=== PATIENT | male | born 1940 | race Caucasian/White ===

== ENCOUNTER 2017-07-23 10:24 | Emergency (ER) | payer MEDICARE ==
[2017-07-23 11:13] VITALS: BP 148/86
--- NOTE | 2017-07-23 11:40 | UC ---
Throat Pain/Nasal Jerod HPI - HPI Summary HPI Summary: 76 year old with sore throat. Complaints of left sided throat lump noticed 6 months ago. PCP sent him for ultrasound, which came back normal. Describes it as 'mild sore throat' and 'restrictive' feeling. Starting to lose voice. Not gaining weight like he used to. Complaints of general malaise feeling. PCP appt next week, labs drawn this past week. ENT appt next week. History of bladder cancer at age 56. Came in today as he is not improved. HAS HAD GERD and saw Dr Hill 2 days ago and started GERD med yesterday. No choking on food, no early satiety, no dysphagia. Has had GERD / reflux with pizza and when lying down at night. ENT next thursday [ End ] - History of Current Complaint Chief Complaint: UCGeneralIllness Stated Complaint: SORE THROAT Time Seen by Provider: 07/23/17 11:30 Hx Obtained From: Patient Onset/Duration: Gradual Onset Pain Intensity: 2 - Allergies/Home Medications Allergies/Adverse Reactions: Allergies Allergy/AdvReac Type Severity Reaction Status Date / Time Iodinated Contrast- Oral and Allergy Hives Verified 06/08/17 11:15 IV Dye iodine Allergy Hives Verified 06/08/17 11:15 Home Medications: Home Medications Gabapentin CAP(*) [Neurontin 300 CAP(*)] 300 mg PO BID 07/23/17 [History Confirmed 07/23/17] Meloxicam [Mobic] 15 mg PO DAILY 07/23/17 [History Confirmed 07/23/17] [place]-3 Fatty Acids/Fish Oil [Fish Oil 1,000 mg Capsule] 1 each PO DAILY [History Confirmed 07/23/17] Valsartan TAB* [Diovan TAB*] 320 mg PO DAILY 07/23/17 [History Confirmed ] PMH/Surg Hx/FS Hx/Imm Hx Previously Healthy: Yes Cardiovascular History: Hypertension GI/ History: Gastroesophageal Reflux - Surgical History Surgical History: Yes Surgery Procedure, Year, and Place: APPY,LAPCHOLE, BLADDER CA WITH TUMOR REMOVAL ,RT ANKLE ORIF, CARPAL TUNNEL BILATERAL WRISTS, CATARACT REPAIR BILATERALLY - Social History Occupation: Retired Alcohol Use: Daily Alcohol Amount: 1 shot every night Substance Use Type: None Smoking Status (MU): Former Smoker Type: Cigarettes Length of Time of Smoking/Using Tobacco: QUIT AT 35 Household Exposure Type: Cigarettes Review of Systems Constitutional: Fatigue ENT: Sore Throat Gastrointestinal: Other - gerd Is Patient Immunocompromised?: No All Other Systems Reviewed And Are Negative: Yes Physical Exam Triage Information Reviewed: Yes Appearance: Well-Appearing, No Pain Distress, Well-Nourished Vital Signs: Initial Vital Signs Temp 99.1 F 07/23/17 11:02 Pulse 70 07/23/17 11:02 Resp 14 07/23/17 11:02 BP 148/86 07/23/17 11:02 Pulse Ox 98 07/23/17 11:02 Vital Signs Reviewed: Yes Eye Exam: Normal ENT Exam: Normal ENT: Positive: Normal ENT inspection Dental Exam: Normal Neck exam: Normal Neck: Positive: 1 Respiratory Exam: Normal Cardiovascular Exam: Normal Abdominal Exam: Normal Musculoskeletal Exam: Normal Neurological Exam: Normal Psychological Exam: Normal Skin Exam: Normal Throat Pain/Nasal Course/Dx - Course Course Of Treatment: possible GERD causing his voice changes -- seen by GI 2 days ago started meds 1 day ago. Cont meds. keep f/u with ENT. RTO if needed. no acute concerns and he is worried as Sx not going away and with history of bladder cancer he is worried about cancer but no red flags at this time and cont current treatment. - Differential Dx/Diagnosis Differential Diagnosis/HQI/PQRI: Laryngitis, Peritonsillar Abscess, Pharyngitis , Tonsillitis, URI Provider Diagnoses: GERD. laryngitis Discharge - Sign-Out/Discharge Documenting (check all that apply): Discharge/Admit/Transfer - Discharge Plan Condition: Good Disposition: HOME Patient Education Materials: Gastroesophageal Reflux Disease (ED) Referrals: Gregg Keyes DO [Primary Care Provider] - 4 Days (IF NEEDED) Additional Instructions: PLEASE KEEP YOUR ENT APPT NEXT WEEK FOR FURTHER EVALUATION - Billing Disposition and Condition Condition: GOOD Disposition: Home
== END 2017-07-23 12:03 | disposition home or self-care (01) ==
LOC: UCCORT 10:24
DX: K21.9 Gastro-esophageal reflux disease without esophagitis (principal); J04.0 Acute laryngitis; Z85.51 Personal history of malignant neoplasm of bladder; Z88.8 Allergy status to other drugs, medicaments and biological substances; Z91.041 Radiographic dye allergy status; Z87.891 Personal history of nicotine dependence
CPT/HCPCS: 99212; G0463

== ENCOUNTER 2018-11-26 07:23 | Inpatient (IN) | payer MEDICARE ==
--- NOTE | 2018-11-17 15:32 | HP ---
HISTORY AND PHYSICAL: DATE OF ADMISSION/SURGERY: 11/26/18 DATE OF OFFICE VISIT: 11/15/18 SURGEON: Ophelia Ochoa MD * (DICTATED BY ZEHRA MONK) PROCEDURE: Left total knee arthroplasty. CHIEF COMPLAINT: Left knee pain. HISTORY OF PRESENT ILLNESS: Mr. Boateng is a 78-year-old gentleman with continued complaints of left knee pain. He has failed conservative treatment and elected to proceed with a left total knee arthroplasty. PAST MEDICAL HISTORY: Diabetes, hypertension, GERD, and bladder cancer. PAST SURGICAL HISTORY: ORIF of the right ankle, appendectomy, cholecystectomy, bilateral carpal tunnel release, and bladder surgery. CURRENT MEDICATIONS: 1. Valsartan/hydrochlorothiazide 320/25 mg a day. 2. Meloxicam 15 mg a day. 3. Gabapentin 300 mg 3 times a day. 4. Pantoprazole sodium 40 mg twice a day. 5. Fenofibrate 160 mg daily. 6. Glipizide 5 mg daily. ALLERGIES: To IODINE. FAMILY HISTORY: Diabetes. SOCIAL HISTORY: He is a 78-year-old gentleman, lives with his . He does not smoke or use drugs. Drinks approximately 1 beer a night. REVIEW OF SYSTEMS: A complete 14-point review of systems was reviewed with the patient. It was positive for GERD and diabetes. He denies history of DVT, PE, hepatitis, HIV, or anesthesia problems. PHYSICAL EXAMINATION GENERAL: He is well developed, well nourished, in no acute distress. VITAL SIGNS: He stands 70 inches tall, weighs 198 pounds. Blood pressure is 162/88, heart rate is 94. HEENT: Normocephalic, atraumatic. NECK: Supple. No palpable lymph nodes. PULMONARY: The lungs are clear to auscultation bilaterally. CARDIO: Regular rate and rhythm. Strong S1, S2. ABDOMEN: Soft, nontender, nondistended. NEUROLOGICAL: He is alert and oriented x3. MUSCULOSKELETAL: Left lower extremity: The skin is intact. There are no open wounds or abrasions. He walks with an antalgic-type gait favoring his left knee. He has a moderate effusion of the left knee. Range of motion is 20 to 100 degrees of flexion. There is a 12-degree valgus deformity, 2+ dorsalis pedis pulse, and intact sensation. ASSESSMENT AND PLAN: Mr. Boateng is a 78-year-old gentleman with severe end- stage osteoarthritis of the left knee. He has failed conservative treatment and elected to proceed with a left total knee arthroplasty. The surgery is scheduled for 11/26/[address] Ochoa discussed the risks and benefits of the surgery at today's visit and all of his questions were answered. He will follow up with Dr. Ochoa 2 weeks after the surgery. ZEHRA MONK [id number]/[facility] #: [id number] [facility] CENTERFarheen
[~2018-11-26 07:23] MED LIST: Acetaminophen TAB* 325 MG PO ONE; Buffered Lidocaine 1% SYRIN* 1 ML/SYRINGE INTRADERM ONE; Dexamethasone TAB* 4 MG PO ONE; DiMENhydriNATE IV* 50 MG/ML VIAL IV PUSH PRN; Famotidine IV* 10 MG/ML 2 ML (20 mg) IV ONE; HYDROmorphone INJ1* 1 MG/ML SYRINGE IV PRN; Lactated Ringers 1000 ML Bag* 1,000 ML IV SCH; Naloxone* 0.4 MG/ML 1 ML VIAL IV PRN; Ondansetron ODT TAB* 4 MG PO ONE; PROCHLORPERAZINE INJ 5 MG/ML 2 ML VIAL IV PRN; Tranexamic Acid 1,000 MG in NS 0.9% 50 ML* (outpatient use) IV SCH; celeCOXIB CAP* 100 MG PO ONE; fentaNYL* 50 MCG/ML 2 ML VIAL (100 MCG VIAL) IV PRN; oxyCODONE TAB* 5 MG TAB PO PRN
--- OUTSIDE RECORDS SUMMARY | 2018-11-26 07:27 | XMS REPORT | Continuity of Care Document ---
:1940 External Reference #:[id number] Author Name Shanon Rodríguez Care Team Providers Name Role Phone DariamarilinAustin Care Team Information Clinical Rehabilitation Liaison [phone] Problems Active Problems Provider Date Vitamin D deficiency aJnuary Castillo MD Onset: 05/14/2010 Impaired fasting glycaemia January Castillo MD Onset: 05/14/2010 Benign prostatic hypertrophy without Barbie Fuchs MD Onset: 05/07/2009 outflow obstruction Carpal tunnel syndrome Barbie Fuchs MD Onset: 05/16/2008 Generalized osteoarthritis of the hand Barbie Fuchs MD Onset: 05/16/2008 History of malignant neoplasm of bladder Barbie Fuchs MD Onset: 2008 Impotence of organic origin Barbie Fuchs MD Onset: 05/04/2008 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 Primary cardiomyopathy Barbie Fuchs MD Onset: 07/26/2007 Mixed hyperlipidemia Barbie Fuchs MD Onset: 05/17/2007 Benign essential hypertension Barbie Fuchs MD Onset: 05/17/2007 Hyperlipidemia Mike Nguyen MD Onset: 05/22/2004 Type 2 diabetes mellitus Gregg Keyes DO Onset: 02/17/2014 Diabetic neuropathy Gregg Keyes DO Onset: 03/10/2016 Pure hypercholesterolemia Gregg Keyes DO Onset: 02/17/2014 Gallstone pancreatitis Onset: 02/11/2014 Hypertensive disorder Onset: 02/11/2014 Social History Type Date Description Comments Sex Unknown Tobacco Use Start: Unknown End: Unknown Former Cigarette Smoker ETOH Use Consumes 2 beers per day ETOH Use Consumes liquor 4 times per day Tobacco Use Start: Unknown End: Unknown Patient is a former smoker Smoking Status Reviewed: 07/26/18 Patient is a former smoker Allergies, Adverse Reactions, Alerts Active Allergies Reaction Severity Comments Date Iodine 11/14/2010 Medications Active Medications SIG Qnty Indications Ordering Provider Date Valsartan 1 by mouth every 90tabs Gregg Keyes, 07/26/2018 320mg Tablets day DO Sildenafil Citrate Take 1/2 - 1 6tabs Gregg Keyes, 01/25/2018 Tablet By Mouth DO 100mg Tablets Once Daily as Needed Glipizide ER Take One Tablet 30tabs Gregg Keyes, 07/27/2017 5mg By Mouth Every DO Tablets ER 24HR Day Fenofibrate Take One Tablet 90tabs E78.2 Gregg Keyes, 03/10/2016 160mg By Mouth Every DO Tablets Day Meloxicam Take One Tablet 90tabs Gregg Keyes, 08/10/2013 15mg Tablets By Mouth Every DO Day as Needed For Pain Gabapentin 1 by mouth bid Unknown 300mg Podiatry Capsules Pravastatin Sodium 1 by mouth every KeyesGregg dhaliwal, 10mg day DO Tablets Pantoprazole Sodium 1 by mouth every Unknown day 40mg Tablets DR Immunizations CPT Code Status Date Vaccine Lot # [id number] Given 04/07/2006 Pneumococcal 23 Immunization Adult Or Immunosuppressed Patient 21384 Given 10/10/2005 Tetanus And Diptheria Toxoids For Adult Use-preservative free 92185 Refused 10/28/2018 Influenza Vac, Quadrivalent, Split, 0.5mL Dosage, Im Use 44546 Refused 04/16/2018 Prevnar 13 Pneumococal Conjugate Vaccine 82918 Refused 10/28/2017 Fluzone Highdose Age 65 And Over Preservative & Antibiotic Free Vital Signs Date Vital Result Comment 10/28/2018 10:32am Weight 197.00 lb Heart Rate 68 /min BP Systolic 138 mmHg BP Diastolic 80 mmHg Respiratory Rate 18 /min Height 69.5 inches 5'9.50" BMI (Body Mass Index) 28.7 kg/m2 07/26/2018 10:31am Weight 192.00 lb Heart Rate 70 /min BP Systolic 126 mmHg BP Diastolic 72 mmHg Respiratory Rate 18 /min Height 69.5 inches 5'9.50" BMI (Body Mass Index) 27.9 kg/m2 Results Test Date Facility Test Result H/L Range Note Hemoglobin A1c 10/20/2018 [facility] Hemoglobin A1c 7.3 % High 4.1-5.9 1 Estimated Average Glucose Calc 163 mg/dL High 71-140 CBC with Auto Diff-fcmg 10/20/2018 [facility] WBC 5.1 K/uL 4.1-11.0 RBC 4.71 M/uL 4.60-6.10 Hemoglobin 14.5 gm/dL 13.5-18.0 Hematocrit 43.1 % 41.0-53.0 MCV 91.5 fL 80.0-97.0 MCH 30.8 pg 27.0-32.0 MCHC 33.6 g/dL 32.0-36.0 RDW 14.0 % 11.5-14.5 PLT Count 253 K/ul 140-400 MPV 8.5 FL 7.1-10.7 Neutrophil 59.5 % 35.0-75.0 Lymphocyte 26.3 % 16.0-52.0 Monocyte 12.5 % High 2.0-10.0 Eosinophil 0.9 % 0.0-5.0 Basophil 0.8 % 0.0-4.0 Abs Neutrophils 3.1 K/uL 2.1-8.0 Abs Lymphocytes 1.4 K/uL 0.8-5.5 Abs Monocytes 0.6 K/uL 0.1-1.0 Abs Eosinophils 0.0 K/uL 0.0-0.5 Abs Basophils 0.0 K/uL 0.0-0.3 Basic (BMP) 10/20/2018 [facility] Sodium 141 mmol/L 135-146 2 Potassium 4.7 mmol/L 3.5-5.2 Chloride# 105 mmol/L 97-110 3 Carbon Dioxide 27 mmol/L 24-34 Glucose 115 mg/dL High 70-105 BUN 21 mg/dL 6-26 Creatinine 1.3 mg/dL 0.5-1.4 Calcium 10.3 mg/dL 8.5-10.5 4 Female Egfr 41 Low >60 5 Male Egfr 55 Low >60 6 Anion Gap 9 mmol/L 5-15 7 Laboratory test finding 10/20/2018 [facility] TSH 0.72 uIU/mL 0.35-4.94 Lipid Treatment 10/20/2018 [facility] Cholesterol 177 mg/dL 50-199 Triglycerides 83 mg/dL 30-200 HDL 52 mg/dL 29-71 8 Chol/ HDL Ratio 3.4 ratio Low 4.0-6.7 VLDL 17 mg/dL 2-29 LDL (Calc) 109 mg/dL High 20-99 9 Alt 18 U/L 3-42 Ast 14 U/L 8-42 Basic (BMP) 07/20/2018 [facility] Sodium 139 mmol/L 135-146 10 Potassium 5.5 mmol/L High 3.5-5.2 Chloride# 102 mmol/L 97-110 11 Carbon Dioxide 29 mmol/L 24-34 Glucose 117 mg/dL High 70-105 BUN 53 mg/dL High 6-26 Creatinine 1.5 mg/dL High 0.5-1.4 Calcium 10.4 mg/dL 8.5-10.5 12 Female Egfr 32 Low >60 13 Male Egfr 43 Low >60 14 Anion Gap 8 mmol/L 5-15 15 Lipid Treatment 07/20/2018 [facility] Cholesterol 182 mg/dL 50-199 Triglycerides 69 mg/dL 30-200 HDL 50 mg/dL - 16 Chol/ HDL Ratio 3.6 ratio Low 4.0-6.7 VLDL 14 mg/dL 2-29 LDL (Calc) 118 mg/dL High 20-99 17 Alt 15 U/L 3- Ast 13 U/L 8- Hemoglobin A1c 07/20/2018 [facility] Hemoglobin A1c 7.1 % High 4.1-5.9 Estimated Average Glucose Calc 157 mg/dL High 71-140 1 Fastin hours 2 Updated reference range on new analyzer 3 Updated reference range on new analyzer 4 Updated reference range 06-09-2018 5 Concerning GFR Guidelines for Americans: Normal function or mild renal disease, if clinically at risk: >/= 60 mL/min Moderately decreased: 30-59 Severely decreased: 15-29 Renal failure: <15 There is reduced accuracy above 60ml/min/1.73 m squared, but the numeric value may be clinically useful in the near 60 range 6 Concerning GFR Guidelines: Normal function or mild renal disease, if clinically at risk: >/= 60 mL/min Moderately decreased: 30-59 Severely decreased: 15-29 Renal failure: <15 There is reduced accuracy above 60ml/min/1.73 m squared, but the numeric value may be clinically useful in the near 60 range Glomerular Filtration Rate (GFR) is estimated based on the CKD-EPI equation, which assumes a steady state for creatinine as recommended by the National Kidney Disease Education Program in conjunction with the National Institutes of Health and the National Kidney Foundation. Clinical conditions in which it may be necessary to measure GFR by using clearance methods include extremes of age and body size, severe malnutrition or obesity, diseases of skeletal muscle, paraplegia or quadriplegia, vegetarian diet, rapidly changing kidney function, and calculation of the dose of potentially toxic drugs that are excreted by the kidneys. 7 Updated Reference Range 8 Per NCEP ATP III Guidelines: Results lower than 40 mg/dL are suggestive of increased risk for coronary artery disease. Results > or = to 60 mg/dL are considered a negative risk factor. 9 Per NCEP ATP III Guidelines: Normal Population <130 Patients with medical conditions: CHD/DM Optimal: <100 Borderline high: 130-159 High: 160-189 Very high: >189 10 Updated reference range on new analyzer 11 Updated reference range on new analyzer 12 Updated reference range 06-09-2018 13 Concerning GFR Guidelines for Americans: Normal function or mild renal disease, if clinically at risk: >/= 60 mL/min Moderately decreased: 30-59 Severely decreased: 15-29 Renal failure: <15 There is reduced accuracy above 60ml/min/1.73 m squared, but the numeric value may be clinically useful in the near 60 range 14 Concerning GFR Guidelines: Normal function or mild renal disease, if clinically at risk: >/= 60 mL/min Moderately decreased: 30-59 Severely decreased: 15-29 Renal failure: <15 There is reduced accuracy above 60ml/min/1.73 m squared, but the numeric value may be clinically useful in the near 60 range Glomerular Filtration Rate (GFR) is estimated based on the CKD-EPI equation, which assumes a steady state for creatinine as recommended by the National Kidney Disease Education Program in conjunction with the National Institutes of Health and the National Kidney Foundation. Clinical conditions in which it may be necessary to measure GFR by using clearance methods include extremes of age and body size, severe malnutrition or obesity, diseases of skeletal muscle, paraplegia or quadriplegia, vegetarian diet, rapidly changing kidney function, and calculation of the dose of potentially toxic drugs that are excreted by the kidneys. 15 Updated Reference Range 16 Per NCEP ATP III Guidelines: Results lower than 40 mg/dL are suggestive of increased risk for coronary artery disease. Results > or = to 60 mg/dL are considered a negative risk factor. 17 Per NCEP ATP III Guidelines: Normal Population <130 Patients with medical conditions: CHD/DM Optimal: <100 Borderline high: 130-159 High: 160-189 Very high: >189 Procedures Date Code Description Status 01/12/2018 59389623 Colonoscopy Completed 04/11/2011 59226192 Colonoscopy Completed Medical Devices Description No Information Available Encounters Type Date Location Provider Dx Diagnosis Office Visit 07/26/2018 [facility] Gregg Keyes DO Z00.00 Encntr for general 10:15a adult medical exam w/o abnormal findings 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 neuropathy, unsp I10 Essential (primary) hypertension K59.00 Constipation, unspecified E04.1 Nontoxic single thyroid nodule E78.2 Mixed hyperlipidemia M18.9 Osteoarthritis of first carpometacarpal joint, unspecified N52.9 Male erectile dysfunction, unspecified M17.0 Bilateral primary osteoarthritis of knee R60.9 Edema, unspecified M25.512 Pain in LEFT shoulder Z13.31 Encounter for screening for depression M19.041 Primary osteoarthritis, RIGHT hand M19.042 Primary osteoarthritis, LEFT hand R22.1 Localized swelling, mass and lump, neck R19.4 Change in bowel habit R68.84 Jaw pain 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, unsp R14.1 Gas pain Z68.27 Body mass index (BMI) 27.0-27.9, adult Assessments Date Code Description Provider 10/28/2018 Z01.810 Encounter for preprocedural cardiovascular Gregg Keyes DO examination 10/28/2018 M17.0 Bilateral primary osteoarthritis of knee Gregg Keyes DO 10/28/2018 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, unspecifi 10/28/2018 I10 Essential (primary) hypertension Gregg Keyes DO 10/28/2018 K59.00 Constipation, unspecified Gregg Keyes DO 10/28/2018 E04.1 Nontoxic single thyroid nodule Gregg Keyes DO 10/28/2018 E78.2 Mixed hyperlipidemia Gregg Keyes DO 10/28/2018 M18.9 Osteoarthritis of first carpometacarpal Gregg Keyes DO joint, unspecified 10/28/2018 N52.9 Male erectile dysfunction, unspecified Gregg Keyes DO 10/28/2018 R60.9 Edema, unspecified Keyes Gregg, DO 10/28/2018 M25.512 Pain in LEFT shoulder Keyes, Gregg, DO 10/28/2018 M19.041 Primary osteoarthritis, RIGHT hand Gregg Keyes, DO 10/28/2018 M19.042 Primary osteoarthritis, LEFT hand Gregg Keyes, DO 10/28/2018 R22.1 Localized swelling, mass and lump, neck Wali Gregg, DO 10/28/2018 R19.4 Change in bowel habit Keyes, Gregg, DO 10/28/2018 R68.84 Jaw pain Keyes, Gregg, DO 10/28/2018 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, uns 10/28/2018 R14.1 Gas pain KeyesGregg, DO 10/28/2018 Z68.28 Body mass index (BMI) 28.0-28.9, adult Gregg Keyes DO 10/20/2018 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, unspecified 10/20/2018 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 Schedule, Laboratory neuropathy, [facility] 10/20/2018 I10 Essential (primary) hypertension Wali Gregg, DO 10/20/2018 I10 Essential (primary) hypertension Schedule, Laboratory 10/20/2018 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 [facility] neuropathy, [facility] 10/20/2018 I10 [facility] 07/26/2018 Z00.00 Encntr for general adult medical exam w/o Gregg Keyes DO abnormal findings 07/26/2018 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, unspecifi 07/26/2018 I10 Essential (primary) hypertension Gregg Keyes DO 07/26/2018 K59.00 Constipation, unspecified Gregg Keyes DO 07/26/2018 E04.1 Nontoxic single thyroid nodule Gregg Keyes DO 07/26/2018 E78.2 Mixed hyperlipidemia Gregg Keyes, 07/26/2018 M18.9 Osteoarthritis of first carpometacarpal Gregg Keyes DO joint, unspecified 07/26/2018 N52.9 Male erectile dysfunction, unspecified Gregg Keyes, DO 07/26/2018 M17.0 Bilateral primary osteoarthritis of knee Gregg Keyes, 07/26/2018 R60.9 Edema, unspecified Gregg Keyes, DO 07/26/2018 M25.512 Pain in LEFT shoulder Gregg Keyes, DO 07/26/2018 Z13.31 Encounter for screening for depression KeyesGregg, DO 07/26/2018 M19.041 Primary osteoarthritis, RIGHT hand Wali Gregg, DO 07/26/2018 M19.042 Primary osteoarthritis, LEFT hand Keyes, Gregg, DO 07/26/2018 R22.1 Localized swelling, mass and lump, neck Keyes Gregg, DO 07/26/2018 R19.4 Change in bowel habit Gregg Keyes DO 07/26/2018 R68.84 Jaw pain Gregg Keyes, DO 07/26/2018 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, uns 07/26/2018 R14.1 Gas pain Gregg Keyes, DO 07/26/2018 Z68.27 Body mass index (BMI) 27.0-27.9, adult Gregg KeyesDO 07/20/2018 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, unspecified 07/20/2018 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 Schedule, Laboratory neuropathy, uns 07/20/2018 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 [facility] Lab neuropathy, [facility] Plan of Treatment Future Appointment(s):01/19/2019 9:15 am - Schedule, Laboratory at [facility]2018 10:00 am - Gregg Keyes DO at [facility]10/28/2018 - Gregg Keyes DOZ01.810 Encounter for preprocedural cardiovascular examinationFollow up:Blood work in 3 months and will follow up with me a couple of days later.M17.0 Bilateral primary osteoarthritis of kneeComments:Scheduled to undergo a left total knee replacement on 11/26/18 in [facility] with Dr. Ochoa under General Anesthesia.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 neuropathy, unspecifiNew Labs:Basic (BMP), Scheduled: 01/19/19Lipid Treatment, Scheduled: Hemoglobin A1c, Scheduled: 01/19/19Comments:The patient's labs were reviewed with the patient her A1c was elevated at 7.3.1. Advised the patientto continue on current medication regimen which include Glipizide.2. Discussed with the patient thathe/she will benefit from maintaining a diabetic diet and a regular exercise regimen. 3. Advised the patient to check the sugars on regular basis.5. Advised the patient to revisit us to check the sugars.6. We will continue to monitor.I10 Essential (primary) hypertensionComments:Today, the patient's BP is slightly elevated at 138/801. Advised the patient to continue taking Olmesartan/HCTZ.2. The patient will benefit from maintaining a low sodium diet.3. The patient was encouraged to monitor BP periodically at home and maintain a log of the same to bring along during the next visit for comparison.4. Advised the patient to stay hydrated.5. We will continue to monitor.K59.00 Constipation, cbrulyugekdW45.1 Nontoxic single thyroid pogrmuA84.2 Mixed hyperlipidemiaComments:Condition reviewed with the patient in detail. LDL is elevated at 109.1. Advised the patient to continue Fenofibrate2. Decrease the total amount of fat you eat. Choose lean meats, fat- free or 1% fat milk, and low-fat dairy products, such as yogurt and cheese.3. Replace unhealthy fats with healthy fats.4. Eat foods high in fiber.5. We will recheck during the next blood draw.M18.9 Osteoarthritis of first carpometacarpal joint, karucozqenmY18.9 Male erectile dysfunction, ifwwysoqmckY89.9 Edema, rllostcqlvkQ01.512 Pain in LEFT ulgmkyqkS98.041 Primary osteoarthritis, RIGHT handComments:We will continue meloxicam. We will monitor creatinine function. Will follow up with Ortho.M19.042 Primary osteoarthritis, LEFT handComments:We will continue meloxicam. We will monitor creatinine function. Will follow up with Ortho.R22.1 Localized swelling, mass and lump, neckR19.4 Change in bowel kzvuoN48.84 Jaw painComments:Demonstrated the TMJ relaxing exercise at office today. Advised the patient to perform this exercise on regular basis. We will continue to monitor.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 tubular function, unsR14.1 Gas painZ68.28 Body mass index (BMI) 28.0-28.9, adultComments:The patient's BMI is at 28.7. The patient was strongly encouraged to lose weight with low-calorie diet and exercises. We will continue to monitor his weight and BMI periodically. Functional Status Description No Information Available Mental Status Description No Information Available Referrals Description No Information Available
--- OUTSIDE RECORDS SUMMARY | 2018-11-26 07:27 | XMS REPORT | Continuity of Care Document ---
:1940 External Reference #:[id number] Author Name Gregg Keyes DO Address [address] [id number] Care Team Providers Name Role Phone Margarita Austin Care Team Information Sales Development Executive [phone] Problems Active Problems Provider Date Vitamin D deficiency January Castillo MD Onset: 05/14/2010 Impaired fasting glycaemia [...] Day Fenofibrate Take One Tablet 90tabs E78.2 rGegg Keyes, 03/10/2016 160mg By Mouth Every DO Tablets Day Meloxicam Take One Tablet 90tabs Gregg Keyes, 08/10/2013 15mg Tablets By Mouth Every DO Day as Needed For Pain Gabapentin 1 by mouth bid Unknown 300mg Podiatry Capsules Pravastatin Sodium 1 by mouth every KeyesGregg dhaliwal, 10mg day DO Tablets Pantoprazole Sodium 1 by mouth every Unknown day 40mg Tablets Immunizations CPT Code Status Date Vaccine Lot # 20787 Given 04/07/2006 Pneumococcal 23 Immunization Adult Or Immunosuppressed Patient 68425 Given 10/10/2005 Tetanus And Diptheria Toxoids For Adult Use-preservative free 27990 Refused 10/28/2018 Influenza Vac, Quadrivalent, Split, 0.5mL Dosage, Im Use 32662 Refused 04/16/2018 Prevnar 13 Pneumococal Conjugate Vaccine 68618 Refused 10/28/2017 Fluzone Highdose Age 65 And [...] TSH 0.72 uIU/mL 0.35-4.94 Lipid Treatment 10/20/2018 [place] Cholesterol 177 mg/dL 50-199 Triglycerides 83 mg/dL 30-200 HDL 52 mg/dL 29-71 8 Chol/ HDL Ratio 3.4 ratio Low 4.0-6.7 VLDL 17 mg/dL 2- LDL (Calc) 109 mg/dL High 20-99 9 Alt 18 U/L 3-42 Ast 14 U/L 8- Basic (BMP) 07/20/2018 [facility] Sodium 139 mmol/L 135-146 10 Potassium 5.5 mmol/L High 3.5-5.2 Chloride# 102 mmol/L 97-110 11 Carbon Dioxide 29 mmol/L 24-34 Glucose 117 mg/dL High 70-105 BUN 53 mg/dL High 6-26 Creatinine 1.5 mg/dL High 0.5-1.4 Calcium 10.4 mg/dL 8.5-10.5 12 Female Egfr 32 Low >60 13 Male Egfr 43 Low >60 14 Anion Gap 8 mmol/L 5-15 15 Lipid Treatment 07/20/2018 [facility] Cholesterol 182 mg/dL 50-199 Triglycerides 69 mg/dL 30-200 HDL 50 mg/dL 16 Chol/ HDL Ratio 3.6 ratio Low 4.0-6.7 VLDL 14 mg/dL LDL (Calc) 118 mg/dL High 99 17 Alt 15 U/L 3- Ast 13 U/L 8- Hemoglobin A1c 07/20/2018 [place] Hemoglobin A1c 7.1 % High 4.1-5.9 Estimated [...] >189 Procedures Date Code Description Status 01/12/2018 58483310 Colonoscopy Completed 04/11/2011 95859977 Colonoscopy Completed Medical Devices Description No Information Available Encounters Type Date Location Provider Dx Diagnosis Office Visit 07/26/2018 [facility] Gregg Keyes DO Z00.00 Encntr for general [...] unspecified 10/28/2018 N52.9 Male erectile dysfunction, unspecified Wali Gregg, DO 10/28/2018 R60.9 Edema, unspecified KeyesGregg dhaliwal, DO 10/28/2018 M25.512 Pain in LEFT shoulder Gregg Keyes, DO 10/28/2018 M19.041 Primary osteoarthritis, RIGHT hand Karly Keyesew, DO 10/28/2018 M19.042 Primary osteoarthritis, LEFT hand Gregg Keyes, DO 10/28/2018 R22.1 Localized swelling, mass and lump, neck Gregg Keyes, DO 10/28/2018 R19.4 Change in bowel habit Gregg Keyes, DO 10/28/2018 R68.84 Jaw pain Gregg Keyes, DO 10/28/2018 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, uns 10/28/2018 R14.1 Gas pain Gregg Keyes, DO 10/28/2018 Z68.28 Body mass index (BMI) 28.0-28.9, adult Gregg Keyes DO 10/20/2018 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, unspecified 10/20/2018 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 Schedule, Laboratory neuropathy, [facility] 10/20/2018 I10 Essential (primary) hypertension Gregg Keyes DO 10/20/2018 I10 Essential (primary) hypertension Schedule, Laboratory 10/20/2018 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 [facility] [place] [facility] 10/20/2018 I10 Essential (primary[facility] 07/26/2018 Z00.00 Encntr for general adult medical exam w/o Gregg Keyes DO abnormal findings 07/26/2018 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, unspecifi 07/26/2018 I10 Essential (primary) hypertension Gregg Keyes DO 07/26/2018 K59.00 Constipation, unspecified Gregg Keyes DO 07/26/2018 E04.1 Nontoxic single thyroid nodule Gregg Keyes DO 07/26/2018 E78.2 Mixed hyperlipidemia Gregg Keyes DO 07/26/2018 M18.9 Osteoarthritis of first carpometacarpal Gregg Keyes joint, unspecified 07/26/2018 N52.9 Male erectile dysfunction, unspecified Gregg Keyes, 07/26/2018 M17.0 Bilateral primary osteoarthritis of knee Gregg Keyes, DO 07/26/2018 R60.9 Edema, unspecified Gregg Keyes, DO 07/26/2018 M25.512 Pain in LEFT shoulder Gregg KeyesDO 07/26/2018 Z13.31 Encounter for screening for depression Gregg Keyes, DO 07/26/2018 M19.041 Primary osteoarthritis, RIGHT hand Gregg Keyes, DO 07/26/2018 M19.042 Primary osteoarthritis, LEFT hand Gregg Keyes, DO 07/26/2018 R22.1 Localized swelling, mass and lump, neck Gregg Keyes, DO 07/26/2018 R19.4 Change in bowel habit KeyesGreggDO 07/26/2018 R68.84 Jaw pain Gregg Keyes, 07/26/2018 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 Karly KeyesewDO tubular function, uns 07/26/2018 R14.1 Gas pain Gregg Keyes, DO 07/26/2018 Z68.27 Body mass index (BMI) 27.0-27.9, adult Gregg KeyesDO 07/20/2018 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, unspecified 07/20/2018 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 Schedule, Laboratory neuropathy, [facility] 07/20/2018 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 [facility] [place] [facility] Plan of Treatment Future Appointment(s):01/19/2019 9:15 am - Schedule, Laboratory at [facility]2018 10:00 am - Gregg Keyes DO at [facility]2018 - Gregg Keyes DOZ01.810 Encounter for preprocedural cardiovascular examinationFollow up:Blood work in 3 months and will follow up with me a couple of days later.M17.0 Bilateral primary osteoarthritis of kneeComments:Scheduled to undergo a left total knee replacement on 11/26/18 in [facility] with Dr. Ochoa under General Anesthesia.E11.40 Type [...] hydrated.5. We will continue to monitor.K59.00 Constipation, mubealxxoksP83.1 Nontoxic single thyroid qwilhmQ65.2 Mixed hyperlipidemiaComments:Condition reviewed with the patient in [...] blood draw.M18.9 Osteoarthritis of first carpometacarpal joint, vfqiwcosugmM74.9 Male erectile dysfunction, mktkveuxmxgG02.9 Edema, ijyqvymykkqU98.512 Pain in LEFT xczmfpjrJ06.041 Primary osteoarthritis, RIGHT handComments:We will continue meloxicam. We will monitor creatinine function. Will follow up with Ortho.M19.042 Primary osteoarthritis, LEFT handComments:We will continue meloxicam. We will monitor creatinine function. Will follow up with Ortho.R22.1 Localized swelling, mass and lump, neckR19.4 Change in bowel kinolW48.84 Jaw painComments:Demonstrated the TMJ relaxing exercise at [...]
--- OUTSIDE RECORDS SUMMARY | 2018-11-26 07:27 | XMS REPORT | Continuity of Care Document ---
:1940 External Reference #:[id number] Author Name Ophelia Ochoa M.D. (transmitted by agent of provider Diana Dasilva) Address [address] [place] [address] [place] [address] Care Team Providers Name Role Phone Gregg Keyes DO - Family Medicine Care Team Information Dental Detail Representative Problems Active Problems Provider Date Localized, primary osteoarthritis Arnie Sainz MD Onset: 06/02/2017 Knee joint effusion Arnie Sainz MD Onset: 06/02/2017 Calcific tendinitis of left shoulder Arnie Sainz MD Onset: 07/16/2017 Calcific tendinitis of right shoulder Arnie Sainz MD Onset: 07/16/2017 Social History Type Date Description Comments Sex Unknown ETOH Use Occasionally consumes alcohol Tobacco Use Start: Unknown End: Patient is a former smoker Unknown Smoking Status Reviewed: 11/15/18 Patient is a former smoker Exercise Type/Frequency Exercises sporadically Allergies, Adverse Reactions, Alerts Active Allergies Reaction Severity Comments Date Iodine 05/13/2016 Medications Active Medications SIG Qnty Indications Ordering Provider Date Walker dispense 1 front 1units M17.0 Ophelia Ochoa, 11/09/2018 [facility] [place] M.D. 70" Wt 198lbs M25.562 Valsartan-Hydrochlorothiazide 1 by mouth every Unknown 320-25mg Tablets day Meloxicam 15mg Tablets 1 by mouth every Unknown day Gabapentin 300mg 1 by mouth three Unknown Capsules times a day Pantoprazole Sodium 1 by mouth every Unknown 40mg Tablets DR day Fenofibrate 160mg 1 by mouth every Unknown Tablets day Glipizide ER 5mg 1 by mouth every Unknown Tablets ER 24HR day Medications Administered in Office Medication SIG Qnty Indications Ordering Provider Date Triamcinolone (Kenalog) Arnie Sainz MD 07/06/2018 Injection Triamcinolone (Kenalog) Arnie Sainz MD 07/06/2018 Injection Injection Hyaluronan Or Arnie Sainz MD 05/25/2018 Derivative, Euflexxa Per Dose Injection Injection Hyaluronan Or Arnie Sainz MD 05/25/2018 Derivative, Euflexxa Per Dose Injection Injection Hyaluronan Or Arnie Sainz MD 05/18/2018 Derivative, Euflexxa Per Dose Injection Injection Hyaluronan Or Arnie Sainz MD 05/18/2018 Derivative, Euflexxa Per Dose Injection Injection Hyaluronan Or Arnie Sainz MD 05/11/2018 Derivative, Euflexxa Per Dose Injection Injection Hyaluronan Or Arnie Sainz MD 05/11/2018 Derivative, Euflexxa Per Dose Injection Triamcinolone (Kenalog) Gianna Rangel PA-C 03/30/2018 Injection Triamcinolone (Kenalog) Gianna Rangel PA-C 03/30/2018 Injection Triamcinolone (Kenalog) Arnie Sainz MD 12/03/2017 Injection Triamcinolone (Kenalog) Arnie Sainz MD 12/03/2017 Injection Triamcinolone (Kenalog) Arnie Sainz MD 11/27/2017 Injection Triamcinolone (Kenalog) Arnie Sainz MD 11/27/2017 Injection Triamcinolone (Kenalog) Arnie Sainz MD 07/16/2017 Injection Triamcinolone (Kenalog) Arnie Sainz MD 07/16/2017 Injection Triamcinolone (Kenalog) Arnie Sainz MD 06/26/2017 Injection Triamcinolone (Kenalog) Arnie Sainz MD 06/11/2017 Injection Triamcinolone (Kenalog) Arnie Sainz MD 06/02/2017 Injection Triamcinolone (Kenalog) Arnie Sainz MD 02/03/2017 Injection Triamcinolone (Kenalog) Arnie Sainz MD 02/03/2017 Injection Celestone 3 mg and 3mg Nick Velez MD 08/20/2016 Injection Celestone 3 mg and 3mg Nick Velez MD 08/20/2016 Injection Celestone 3 mg and 3mg Nick Velez MD 05/13/2016 Injection Immunizations Description No Information Available Vital Signs Date Vital Result Comment 11/15/2018 11:09am Height 70 inches 5'10" Weight 200.00 lb Heart Rate 94 /min BP Systolic 162 mmHg BP Diastolic 88 mmHg Body Temperature 97.9 F Pain Level 0 BMI (Body Mass Index) 28.7 kg/m2 10/25/2018 1:01pm Height 70 inches 5'10" Weight 198.00 lb Heart Rate 67 /min BP Systolic 126 mmHg BP Diastolic 72 mmHg Body Temperature 97.5 F Pain Level 6 BMI (Body Mass Index) 28.4 kg/m2 Results Description No Information Available Procedures Date Code Description Status 07/06/2018 65539 Inject/Drain Joint/Bursa Major W/O US Completed 05/25/2018 05443 Inject/Drain Joint/Bursa Major W/O US Completed 05/18/2018 58211 Inject/Drain Joint/Bursa Major W/O US Completed Medical Devices Description No Information Available Encounters Type Date Location Provider Dx Diagnosis Office Visit 10/25/2018 [facility] Ophelia Ochoa, M25.562 Pain in left knee 1:00p at [facility] M25.561 Pain in right knee M25.462 Effusion, left knee M25.461 Effusion, right knee M17.0 Bilateral primary osteoarthritis of knee M21.061 Valgus deformity, not elsewhere classified, right knee M21.062 Valgus deformity, not elsewhere classified, left knee Office Visit 05/18/2018 Jt Sainz, M17.0 Bilateral primary 1:15p Orthopedics at [facility] [place] knee M19.012 Primary osteoarthritis, 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 11/15/2018 M25.462 Effusion, left knee Ophelia Ochoa M.D. 11/15/2018 M17.0 Bilateral primary osteoarthritis of knee Ophelia Ochoa M.D. 10/25/2018 M25.562 Pain in left knee Ophelia Ochoa M.D. 10/25/2018 M25.561 Pain in right knee Ophelia Ochoa M.D. 10/25/2018 M25.462 Effusion, left knee Ophelia Ochoa M.D. 10/25/2018 M25.461 Effusion, right knee Ophelia Ochoa M.D. 10/25/2018 M17.0 Bilateral primary osteoarthritis of knee Ophelia Ochoa M.D. 10/25/2018 M21.061 Valgus deformity, not elsewhere classified, Ophelia Ochoa M.D. right knee 10/25/2018 M21.062 Valgus deformity, not elsewhere classified, Ophelia Ochoa M.D. 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 at [facility]11/26/2018 9:30 am - DAGMAR Veliz at [facility]11/26/2018 9:30 am - ZEHRA Gutierrez at [facility] at [place]/26/2018 9:30 am - Ophelia Ochoa M.D. at [facility] [place]/15/2018 - Ophelia Ochoa M.D.M25.562 Pain in left kneeFollow up:Follow up: 2 weeks after eboqdcbP32.462 Effusion, left kneeM17.0 Bilateral primary osteoarthritis of knee Functional Status Description No Information Available Mental Status Description No Information Available Referrals Description No Information Available
--- OUTSIDE RECORDS SUMMARY | 2018-11-26 07:27 | XMS REPORT | Continuity of Care Document ---
:1940 External Reference #:[id number] Author Name Ophelia Ochoa M.D. (transmitted by agent of provider Funmi Smyth) Address [address] [place] [address] [place] [address] Care Team Providers Name Role Phone Gregg Keyes DO - Family Medicine Care Team Information Medical Advisor Problems Active Problems Provider Date Localized, primary [...] a former smoker Unknown Smoking Status Reviewed: 10/25/18 Patient is a former smoker Exercise Type/Frequency Exercises sporadically Allergies, Adverse Reactions, Alerts Active Allergies Reaction Severity Comments Date Iodine 05/13/2016 Medications Active Medications SIG Qnty Indications Ordering Provider Date Valsartan-Hydrochloroth 1 by mouth every Unknown iazide day 320-25mg Tablets Meloxicam 1 by mouth every Unknown 15mg Tablets day Gabapentin 1 by mouth three Unknown 300mg Capsules times a day Pantoprazole Sodium 1 by mouth every Unknown 40mg day Tablets DR Fenofibrate 1 by mouth every Unknown 160mg Tablets day Glipizide ER 1 by mouth every Unknown 5mg Tablets ER day 24HR Medications Administered in Office Medication SIG Qnty [...] Available Vital Signs Date Vital Result Comment 10/25/2018 1:01pm Height 70 inches 5'10" Weight 198.00 lb Heart Rate 67 /min BP Systolic 126 mmHg BP Diastolic 72 mmHg Body Temperature 97.5 F Pain Level 6 BMI (Body Mass Index) 28.4 kg/m2 07/06/2018 1:10pm Height 70 inches 5'10" Weight 209.00 lb BP Systolic 124 mmHg BP Diastolic 74 mmHg Respiratory Rate 20 /min Pain Level 4 BMI (Body Mass Index) 30.0 kg/m2 Results Description No Information Available Procedures Date Code Description Status 07/06/2018 30259 Inject/Drain Joint/Bursa Major W/O US Completed 05/25/201876113 Inject/Drain Joint/Bursa Major W/O US Completed 05/18/2018 69801 Inject/Drain Joint/Bursa Major W/O US Completed 05/11/2018 79129 Inject/Drain Joint/Bursa Major W/O US Completed Medical Devices Description No Information Available Encounters Type Date Location Provider Dx Diagnosis Office Visit 05/18/2018 [facility] Sainz, M17.0 Bilateral primary 1:[facility] oste[facility] of knee M19.012 Primary osteoarthritis, 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 at [facility]/25[facility]2018 - Ophelia Ochoa M.D.M25.562 Pain in left kneeFollow up:Follow up: 7-10 days before yfohbuxM40.561 Pain in right kneeM25.462 Effusion, left kneeM25.461 Effusion, right kneeM17.0 Bilateral primary osteoarthritis of kneeM21.061 Valgus deformity, not elsewhere classified , right kneeM21.062 Valgus deformity, not elsewhere classified, left knee Functional Status Description No Information Available Mental Status Description No Information Available Referrals Description No Information Available
[2018-11-26] MEDS ORDERED: celeCOXIB CAP* 100 MG ONE (08:14)
[2018-11-26] MEDS ORDERED: Dexamethasone TAB* 4 MG ONE (08:15)
[2018-11-26] MEDS ORDERED: Ondansetron ODT TAB* 4 MG ONE (08:15)
[2018-11-26] MEDS ORDERED: Famotidine IV* 10 MG/ML 2 ML (20 mg) ONE (08:15)
[2018-11-26] MEDS ORDERED: ceFAZolin 2 GM PREMIX in ORs 2 GM/50 ML BAG ONE (08:15)
[2018-11-26] MEDS ORDERED: Acetaminophen TAB* 325 MG ONE ×2 (08:15→08:34)
[2018-11-26] MEDS ORDERED: Midazolam* 1 MG/ML 5 ML VIAL (5 MG) ONE ×2 (08:16→10:33)
[2018-11-26] MEDS ORDERED: ROPIVACAINE 5 MG/ML 30 ML BTL (0.5%) ONE (09:48)
[2018-11-26] MEDS ORDERED: fentaNYL* 50 MCG/ML 2 ML VIAL (100 MCG VIAL) ONE (10:51)
[2018-11-26] MEDS ORDERED: diPHENhydraMINE PO* 25 MG PO PRN (12:51)
[2018-11-26] MEDS ORDERED: Ondansetron TAB* 4 MG PO PRN (12:51)
[2018-11-26] MEDS ORDERED: traMADol TAB* 50 MG PO PRN (12:51)
[2018-11-26] MEDS ORDERED: Magnesium Hydroxide LIQ* 30 ML UDC PO PRN (12:51)
[2018-11-26] MEDS ORDERED: Cyclobenzaprine TAB* 10 MG PO PRN (12:51)
[2018-11-26] MEDS ORDERED: Ondansetron INJ* 2 MG/ML VIAL IV PRN (12:51)
[2018-11-26] MEDS ORDERED: Morphine INJ* 2 MG/ML 1 ML SYRINGE (TWO MG - NEW SYRINGE VERSION) IV PRN (12:51)
[2018-11-26] MEDS ORDERED: diPHENhydraMINE IV* 50 MG/ML 1 ml VIAL (BENADRYL) IV PRN (12:51)
[2018-11-26] MEDS ORDERED: Polyethylene Glycol 3350* 17 GM PACKET PO PRN (12:51)
[2018-11-26] MEDS ORDERED: Ondansetron ODT TAB* 4 MG PO PRN (12:51)
[2018-11-26] MEDS ORDERED: Bupivacaine 0.5% SDV PF* 30ML VIAL ONE (13:34)
[2018-11-26] MEDS ORDERED: Phenylephrine 10 MG/ML VIAL* 1 ML VIAL ONE (13:34)
[2018-11-26] MEDS ORDERED: Lidocaine 2% PF * 5 ML VIAL ONE (13:34)
[2018-11-26] MEDS ORDERED: Propofol* 500 MG/50 ML BTL ONE (13:34)
[2018-11-26] MEDS: Lactated Ringers 1000 ML Bag* 1,000 ML IV SCH (16:00)
[2018-11-26] MEDS ORDERED: Dextrose 50% VIAL 50 ml IV PUSH PRN (16:17)
--- NOTE | 2018-11-26 16:34 | OP ---
Operative Report - Blank - Operative Report Date of Operation: 11/26/18 Note: VANGIE CURRAN 1940 Date of Surgery: 11/26/18 Ophelia Ochoa MD Meat Process Worker: Jose SHAHID did help throughout the procedure with preparation of the knee, wound retraction, manipulation of the knee, and wound closure. Anesthesiologist: Vishal Rivera MD Anesthesia Type: Spinal Preoperative Diagnosis: Left severe degenerative osteoarthritis of the knee Postoperative Diagnosis: As above Procedure Performed: Left Total Knee Arthroplasty Tourniquet time: 54 minutes Complications: None Specimen: Bone and cartilage from the left knee joint sent to pathology. Hardware Used: Cemented [employer]or[employer]hew total knee hardware was used - For the femur a size 7 left legion posterior stabilized femoral component, for the tibia a size 6 left luis enrique II tibial baseplate, for the insert a size 9mm 5-6 posterior stabilized articular polyethylene insert, and for the patella a size 32 3-peg all poly patella. Brief History/Indication: VANGIE CURRAN was known in clinic and had a history of severe left knee pain and swelling. He failed conservative treatment with anti-inflammatories, pain pills, intra-articular injections and physical therapy. He elected to undergo left total knee arthroplasty due to continued pain and decreased quality of life. Radiographs showed severe end stage osteoarthritis of the knee with bone on bone contact. Informed consent was obtained from the patient. He understood the risks of surgery included but were not limited to: bleeding, infection, damage to nearby structures, intraoperative fracture, nerve palsy, failure of the hardware, early loosening, knee stiffness or loss of motion, anesthesia complications, stroke, heart attack , blood clot and . He wished to proceed. Intra-Operative Findings: Intraoperatively the patient was noted to have severe loss of cartilage in all 3 compartments of the knee. Description of the Procedure: VANGIE CURRAN was identified in the preanesthesia unit. His left knee was marked as the correct operative side. Informed consent was signed and placed in the chart. The patient was taken to the operating room and placed under anesthesia without complication. A leger catheter was placed. A tourniquet was placed on the left thigh. The left lower extremity was prepped and draped in the usual sterile fashion. Preoperative time-out was made to correctly identify the patient, side and site. Appropriate intraoperative antibiotics were given within one hour of incision. Tourniquet was inflated. A midline incision was made and carried sharply down to the extensor mechanism. A new 10 blade was used to make a standard medial parapatellar arthrotomy. The patella was subluxed laterally. Electrocautery was used to dissect soft tissue off the superomedial tibia to the midsagittal plane. The knee was flexed up. The anterior horn of the lateral meniscus and the ACL were sharply incised. A drill was used to enter the distal femur. The intramedullary distal femoral cutting guide was pinned on the distal femur. The oscillating saw was used to make the distal femoral cut. The external rotation guide was pinned on the distal femur and the distal femur was sized to a size 7. The size 7 multi-cutting jig was pinned on the distal femur. The oscillating saw was used to make the appropriate 4 chamfer cuts. Next the PCL was completely released. The extramedullary tibial cutting guide was pinned on the proximal tibia and the oscillating saw was used to make the proximal tibial cut perpendicular to the mechanical axis of the tibia. The bone was carefully removed. The knee was brought out into full extension. The spacer block was placed and had excellent fit with the knee in full extension. The medial and lateral ligaments were well balanced. The flexion and extension gaps were well balanced. The knee was flexed up. Lamina hatch boss was placed both medially and laterally. Any remaining meniscus was removed with electrocautery. Curved osteotome was used to remove any posterior osteophytes. The tibial tray and drop angela were placed and confirmed a satisfactory tibial cut. The size 7 left femoral trial was impacted onto the distal femur. This trial had excellent fit and stability. The box for the posterior stabilized implant was prepared using a box cut osteotome and a reamer. Next a tibial tray trial and 9 mm insert trial was placed. The knee was taken through a range of motion and had full extension to 130 degrees of flexion. Patellofemoral tracking was satisfactory. The patella was inverted and sized to a size 32. Three peg holes were drilled through the size 32 drill guide. The trial patella was placed and the knee was taken through a range of motion. There was satisfactory patellofemoral tracking. All trials were removed. The tibia was subluxed anteriorly and sized to a size 6. The proximal tibial was prepared with a size 6 keel punch. All bony cut surfaces were irrigated with sterile saline and dried. Final implants were cemented into place starting with the tibia, followed by the femur, and last the patella. A 9 mm insert trial was placed and the knee was brought into full extension. Tourniquet was turned down and the knee was copiously irrigated with sterile saline. Electrocautery was used to obtain meticulous hemostasis. Once the cement had fully cured, the insert trial was removed. Any excess cement was removed from around the hardware and capsule. Final insert chosen was a 9 mm posterior stabilized Luis Enrique II articular insert size 5-6. Stability of the insert was checked and noted to be stable. The extensor mechanism was closed using number 1 vicryls. The rest of the incision was closed in a layered fashion using 0 and 2-0 vicryls. The skin was closed using 3-0 nylon suture. Sterile xeroform, 4x4s and webril were used to cover the incision. Shoaib wrap and cold pack were used to cover the dressings. The patients anesthesia was reversed without difficulty. He was taken to the PACU in stable condition. Intended weight-bearing will be as tolerated.
[2018-11-26] MEDS: oxyCODONE/Acetamin 5/325 MG* TAB PO PRN ×2 (16:51→21:20)
[2018-11-26] MEDS: Insulin LISPRO* 1 UNITS UNIT SUBCUT SCH (16:58)
[2018-11-26] MEDS: Acetaminophen TAB* 325 MG PO SCH ×2 (17:13→23:02)
--- NOTE | 2018-11-26 18:21 | CONS ---
CONSULTATION REPORT: DATE OF CONSULT: 11/26/18 PRIMARY CARE PROVIDER: Dr. Gregg Keyes. REQUESTING PROVIDER IN CONSULTATION: ZEHRA Heart ATTENDING PHYSICIAN: Amira Leiva DO (dictated by ZEHRA Jarvis). REASON FOR CONSULTATION: Co-medical management. HISTORY OF PRESENT ILLNESS/HOSPITAL COURSE: I refer you to Dr. Ochoa's history and physical dictated on 11/17/18 for full and complete details, but in short Mr. Boateng is a 78-year-old male with a past medical history of hypertension, diabetes, history of bladder cancer, who presented to [facility] on 11/26/18 for an elective left total knee arthroplasty. He is seen in the PACU. He complains of a slight headache and notes that he is both tired and hungry. The patient also complains of decreased sensation in bilateral lower extremities from the hips down. He has no other complaints today. PAST MEDICAL HISTORY: 1. Diabetes mellitus. 2. Hypertension. 3. GERD. 4. History of bladder cancer. PAST SURGICAL HISTORY: 1. Right ankle. 2. Bilateral carpal tunnel. 3. Appendectomy. 4. Cholecystectomy. 5. Bladder. 6. Cataracts. HOME MEDICATIONS: 1. Fenofibrate 160 mg p.o. daily. 2. Gabapentin 300 mg p.o. b.i.d. 3. Glipizide 5 mg p.o. daily. 4. Meloxicam 15 mg p.o. daily. 5. Pantoprazole 40 mg p.o. daily. 6. Valsartan/HCTZ 320/25 one tab p.o. daily. DRUG ALLERGIES: IODINATED CONTRAST MEDIA, IODINE, hives. FAMILY HISTORY: Negative for CVA, heart disease, cancer. Questionable family history of diabetes mellitus. SOCIAL HISTORY: The patient is a former smoker, he quit in his 30s. He smoked approximately 10 years, 1-pack per day. He drinks approximately 10 alcoholic beverages per week. He is a retired welder explosion. He is . He has 2 children who live outside of the house. He wishes to be a full code. In the event that he is unable to make his own medical decisions, he has appointed his , Shyla Boateng, to be his surrogate decision maker. REVIEW OF SYSTEMS: A 14-point review of systems has been performed and all the pertinent positives and negatives are in the HPI. All other systems are negative. PHYSICAL EXAM: General: Mr. Boateng is a well-developed, well-nourished, healthy - appearing, older white male who is sitting up in bed with the head of bed elevated. He appears mildly groggy, but he is cooperative and responds appropriately. HEENT: PERRL. EOMI. Nonicteric sclerae. Hearing grossly intact. Oral mucous membranes are mildly dry. There are no lesions. The pharynx is clear. Tongue is at midline. Cardiovascular: Regular rate and rhythm with S1 and S2 present without murmurs, rubs, clicks, or gallops. There is no JVD. There is no peripheral edema. Radial and pedal pulses are palpable. Pulmonary: Symmetrical chest expansion without use of accessory muscles. Lungs clear to auscultation bilaterally without rhonchi, wheezes, or rubs. No digital clubbing or cyanosis. Abdomen: Bowel sounds in all quadrants. Soft, nontender to palpation. Musculoskeletal: Upper extremities with full range of motion. Lower extremities with decreased movement as the patient reports that he had an epidural. The patient has clean, dry, and intact dressing to the left knee with a Cryo unit in place. Neuro: The patient is a awake. He is alert and oriented x3. Cranial nerves grossly intact. Upper extremity strength is 5/5 bilaterally, equal memorial marker designer strength. Lower extremities with decreased sensation, decreased movement, although the patient can wiggle toes. ASSESSMENT AND PLAN: Mr. Boateng is a 78-year-old male with past medical history of diabetes and hypertension who presented to [facility] today for an elective left total knee arthroplasty. He will be admitted inpatient for: 1. Left total knee arthroplasty. Management per ortho team. Continue pain regimen and bowel regimen, PT and OT, apixaban 2.5 mg p.o. b.i.d. for DVT prophylaxis. 2. Hypertension. Continue home medications Diovan with hold parameters in place. 3. Diabetes mellitus. Hold glipizide. Fingersticks a.c. with coverage with lispro sliding scale. 4. Gastroesophageal reflux disease. Continue pantoprazole. 5. DVT prophylaxis. Per Ortho, apixaban 2.5 mg p.o. b.i.d. 6. Code status. Full code. TIME SPENT: Approximately 30 minutes was spent on this consult, greater than half of that time was spent [id number] with the patient and his obtaining history, performing physical, and reviewing the plan of care. ZEHRA WILKERSON [id number]/[facility] #: [id number] JOSELITO
[2018-11-26] MEDS: oxyCODONE TAB* 5 MG TAB PO PRN ×2 (19:09→23:14)
[2018-11-26] MEDS: ceFAZolin 1 GM ADVAN(*) 1 GM in NS 0.9% 50 ML* 50 ML IVPB SCH (20:23)
[2018-11-26] MEDS: Gabapentin CAP(*) 300 MG PO SCH (21:13)
[2018-11-26] MEDS: Docusate CAP* 100 MG PO SCH (21:14)
[2018-11-26] MEDS: Magnesium Hydroxide LIQ* 30 ML UDC PO SCH (21:15)
[2018-11-27] MEDS: Lactated Ringers 1000 ML Bag* 1,000 ML IV SCH (03:54)
[2018-11-27] MEDS: ceFAZolin 1 GM ADVAN(*) 1 GM in NS 0.9% 50 ML* 50 ML IVPB SCH ×2 (03:54→12:26)
[2018-11-27] MEDS: oxyCODONE/Acetamin 5/325 MG* TAB PO PRN ×3 (04:06→12:24)
[2018-11-27 05:42] LABS: Hematocrit 39 % (42-52); Hemoglobin 12.9 g/dL (14.0-18.0); Mean Platelet Volume 8.3 fL (7.4-10.4); Platelet Count 237 10^3/uL (150-450)
[2018-11-27 05:54] LABS: Calcium 9.5 mg/dL (8.6-10.3); Potassium 4.6 mmol/L (3.5-5.0)
[2018-11-27 06:00] LABS: EGFR African American 79.2 (>60); EGFR Non-African American 65.4 (>60)
[2018-11-27] MEDS: Acetaminophen TAB* 325 MG PO SCH ×2 (07:42→16:00)
[2018-11-27] MEDS: Magnesium Hydroxide LIQ* 30 ML UDC PO SCH (08:34)
[2018-11-27] MEDS: Gabapentin CAP(*) 300 MG PO SCH (08:35)
[2018-11-27] MEDS: Docusate CAP* 100 MG PO SCH (08:37)
[2018-11-27] MEDS ORDERED: Valsartan TAB* 160 MG PO SCH ×2 (09:00)
[2018-11-27] MEDS ORDERED: Apixaban* 2.5 MG TAB PO SCH (09:00)
[2018-11-27] MEDS ORDERED: Pantoprazole TAB * 40 MG TAB PO SCH (09:00)
[2018-11-27] MEDS ORDERED: Vitamin THERAPEUTIC TAB PO SCH (09:00)
[2018-11-27] MEDS ORDERED: Hydrochlorothiazide TAB* 25 MG PO SCH (09:00)
[2018-11-27] MEDS ORDERED: glipiZIDE TAB.XL* 5 MG PO SCH (09:00)
[2018-11-27] MEDS: Insulin LISPRO* 1 UNITS UNIT SUBCUT SCH ×2 (09:27→12:26)
--- NOTE | 2018-11-27 09:45 | PN ---
Progress Note - Progress Note Date of Service: 11/27/18 SOAP: Subjective: Pt is doing well. Having pain but it is controlled with oral meds. Denies CP/ SOB, calf pain or F/C. Objective: PE- 78 y/o WDWN M NAD LLE- dressing c/d/i, +DF/PF ankle, calf soft NT, +2 Dp pulse, SILT distally Vital Signs Temp Pulse Resp BP Pulse Ox 99.3 F 61 18 149/71 98 11/27/18 08:10 11/27/18 04:07 11/27/18 08:37 11/27/18 08:10 11/27/18 08:10 Laboratory Results - last 24 hr 11/26/18 11/26/18 11/27/18 16:54 20:40 04:56 Hgb 12.9 L Hct 39 L Plt Count 237 MPV 8.3 Sodium Potassium Chloride Carbon Dioxide Anion Gap BUN Creatinine Est GFR ( Amer) Est GFR (Non-Af Amer) BUN/Creatinine Ratio Glucose POC Glucose (mg/dL) 120 H 377 H Calcium 11/27/18 11/27/18 04:56 08:28 Hgb Hct Plt Count MPV Sodium 137 Potassium 4.6 Chloride 103 Carbon Dioxide 26 Anion Gap 8 BUN 24 Creatinine 1.09 Est GFR ( Amer) 79.2 Est GFR (Non-Af Amer) 65.4 BUN/Creatinine Ratio 22.0 H Glucose 232 H POC Glucose (mg/dL) 221 H Calcium 9.5 Assessment: POD 1 left total knee replacement Plan: WBAT cont PT/OT Percocet and flexaril for pain colace for constipation eliquis for dvt prophlaxis Plan DC today vs tomorrow with VNS Meds sent to [facility] to be picked up. Eliquis sent to [facility] in [place] d/t [facility] shortage
[2018-11-27 11:25] VITALS: BP 149/53
--- NOTE | 2018-11-27 11:39 | DS ---
Date of service: 11/27/18 Date of Admission:11/26/18 Date of Discharge: [11/27/18] Date of Surgery: [11/26/18] Attending Orthopedic Provider: [Dr. Ochoa] Pre-operative Diagnosis: [left knee OA] Operative Procedure: [Left total knee replacement] Disposition of Patient: [Home with VNS] Condition of Patient: [Stable] History: VANGIE CURRAN is a 78 year old M with years of increasingly severe [ left knee] pain. Patient has failed conservative management and has elected to undergo a [left] total [knee] replacement Hospital Course: VANGIE was admitted to [facility] on 11/26/18. Patient underwent a [left total knee replacement] without complication followed by a brief recovery in PACU and transfer to the Short Stay Surgical Unit in stable condition. Our hospitalist service, physical therapy and occupational therapy also participated in this patients care. Post-op day 1: patient was alert and in no acute distress. Dressing was clean, dry and intact. Operative extremity dorsiflexion and plantarflexion intact, sensation intact to light touch distally, DP2+. Patient was deemed to be medically and orthopedically stable for discharge. Physical therapy goals were met. Discharge Instructions following Orthopedic Surgery: Activity: * Weight Bearing as tolerated * Continue physical therapy and occupational therapy exercises as shown Wound care: * OK to shower on post-op day 3, no bathing, swimming, or submerging wound. * Use gentle soap, pat dry. Cover with gauze, MONSTER wrap or tape. * Visiting home nurse to do wound checks. Call Orthopedic office for: * Increased drainage * Redness * Increased pain * Fever Go to ER with shortness of breath or chest pain. Diet: * Regular diet * Increase fluids and fiber to prevent constipation. * Continue to use stool softeners, call office if no bowel motion within 48 hours. Medications See Home Medication List in your packet for medications that you should take after discharge. DVT Prophylaxis: Eliquis Dosin.5 mg, 1 tab every 12 hours x 30 days DO NOT take meloxicam while on eliquis. Ok to resume after finish eliquis Pain Control: Percocet Dosin/325 mg 1-2 tabs by mouth every 4-6 hours as needed for pain. Maximum of 10 tabs per day. Cyclobenzaprine 7.5 mg take 1 every 8 hours as needed pain/spasms Please note that Percocet contains Tylenol (acetaminophen). Maximum daily dose of Tylenol is 4000 mg from all sources. Antibiotics are required prior to any dental work. FOLLOW UP: Follow up with [Don] Within 10-14 days, call for appointment Please call our office with any questions or concerns ([phone]) RX to [facility] except for eliquis which was sent to [facility] in [place] d/t [facility] shortage Active Medications Generic Name Dose Route Start Last Admin Trade Name Freq PRN Reason Stop Dose Admin Acetaminophen 975 mg 11/26/18 14:00 11/27/18 07:42 Tylenol Tab* PO Not Given Q8HR SHAY Apixaban 2.5 mg 11/27/18 09:00 11/27/18 08:35 Eliquis* PO 2.5 mg BID SHAY Administration Bisacodyl 10 mg 11/28/18 12:51 Dulcolax Supp* AR DAILY PRN CONSTIPATION Cyclobenzaprine HCl 10 mg 11/26/18 12:51 11/26/18 23:14 Flexeril Tab* PO 10 mg Q6H PRN Administration SPASMS Dextrose 25 ml 11/26/18 16:17 Dextrose 50% Vial 50 Ml* IV PUSH .FOR FS < 60 - SS PRN FS < 60 Diphenhydramine HCl 25 mg 11/26/18 12:51 Benadryl Iv* IV Q6H PRN PRURITIS Diphenhydramine HCl 25 mg 11/26/18 12:51 Benadryl Po* PO Q6H PRN PRURITIS Docusate Sodium 100 mg 11/26/18 21:00 11/27/18 08:37 Colace Cap* PO 100 mg BID SHAY Administration Fenofibrate 160 mg 11/27/18 09:00 11/27/18 09:26 Tricor 160 Mg PO 160 mg QAM SHAY Administration Protocol Gabapentin 300 mg 11/26/18 21:00 11/27/18 08:35 Neurontin Cap(*) PO 300 mg BID SHAY Administration Hydrochlorothiazide 25 mg 11/27/18 09:00 11/27/18 08:36 Hydrodiuril Tab* PO 25 mg 0900 SHAY Administration Cefazolin Sodium 1 gm/ Sodium 50 mls @ 200 mls/hr 10/18/19 19:30 11/27/18 03: 54 Chloride IVPB 11/27/18 11:44 200 mls/hr Q8H SHAY Administration Lactated Ringer's 1,000 mls @ 100 mls/hr 11/26/18 13:00 11/27/18 03:54 Lactated Ringers 1000 Ml Bag* IV 100 mls/hr PER RATE SHAY Administration Insulin Human Lispro 0 units 11/26/18 16:30 11/27/18 09:27 Humalog* SUBCUT 4 units AC SHAY Administration Protocol Lactulose 30 ml 11/26/18 12:51 Lactulose* PO BID PRN CONSTIPATION Magnesium Hydroxide 30 ml 11/26/18 21:00 11/27/18 08:34 Milk Of Magnesia Liq* PO 30 ml BID SHAY Administration Magnesium Hydroxide 30 ml 11/26/18 12:51 Milk Of Magnesia Liq* PO Q6H PRN CONSTIPATION Morphine Sulfate 2 mg 11/26/18 12:51 Morphine Inj (Syringe))* IV Q4H PRN Pain - Unrelieved Multivitamins 1 tab 11/27/18 09:00 11/27/18 08:36 Theragran Tab* PO 1 tab DAILY SHAY Administration Ondansetron HCl 4 mg 11/26/18 12:51 Zofran Inj* IV Q6H PRN NAUSEA Ondansetron HCl 4 mg 11/26/18 12:51 Zofran Odt Tab* PO Q6H PRN NAUSEA Ondansetron HCl 4 mg 11/26/18 12:51 Zofran Tab* PO Q6H PRN NAUSEA Oxycodone HCl 10 mg 11/26/18 12:51 11/26/18 23:14 Roxycodone Tab* PO 10 mg Q4H PRN Administration Pain - Breakthrough Oxycodone/Acetaminophen 2 tab 11/26/18 12:51 11/27/18 08:37 Percocet 5/325 Tab* PO 2 tab Q4H PRN Administration PAIN - SEVERE Pantoprazole Sodium 40 mg 11/27/18 09:00 11/27/18 08:36 Protonix Tab* PO 40 mg QAM SHAY Administration Polyethylene Glycol/Electrolytes 17 gm 11/26/18 12:51 Miralax* PO DAILY PRN Constipation Tramadol HCl 50 mg 11/26/18 12:51 Ultram* PO Q6H PRN PAIN - MODERATE Valsartan 320 mg 11/27/18 09:00 11/27/18 08:34 Diovan Tab* PO 320 mg QAM SHAY Administration
--- NOTE | 2018-11-27 21:46 | PN ---
Subjective Date of Service: 11/27/18 Interval History: reports he is feeling well. denies chest pain or shortness of breath. denies abd pain n/v/d pain is controlled, Denies fever or chills Family History: Unchanged from Admission Social History: Unchanged from Admission Past Medical History: Unchanged from Admission Objective Vital Signs - 8 hr 11/27/18 11/27/18 16:00 16:01 Respiratory 18 Rate O2 Sat by Pulse 94 Oximetry Oxygen Devices in Use Now: None Appearance: appears comfortable sittingin the chair Eyes: No Scleral Icterus Ears/Nose/Mouth/Throat: NL Teeth, Lips, Gums, Mucous Membranes Moist Neck: NL Appearance and Movements; NL JVP Respiratory: Symmetrical Chest Expansion and Respiratory Effort, Clear to Auscultation Cardiovascular: NL Sounds; No Murmurs; No JVD, No Edema Abdominal: NL Sounds; No Tenderness; No Distention Extremities: No Edema, No Clubbing, Cyanosis, - Skin: No Rash or Ulcers, - Neurological: Alert and Oriented x 3 Nutrition: Taking PO's Result Diagrams: 11/27/18 04:56 11/27/18 04:56 Assess/Plan/Problems-Billing Assessment: Mr. Boateng is a 78 y.o male with a past medical history of htn, DM II, GERD, and hx of bladder CA who presented to [facility] for left total knee arthroplasty with Dr. Ochoa. - Patient Problems (1) Status post total knee replacement, left Status: Acute Code(s): Z96.652 - PRESENCE OF LEFT ARTIFICIAL KNEE JOINT SNOMED Code(s): 0972922007904 Comment: Management per orthopedics PT/OT per ortho DVT prop per ortho Pain management per ortho (2) Diabetes mellitus Status: Acute Code(s): E11.9 - TYPE 2 DIABETES MELLITUS WITHOUT COMPLICATIONS SNOMED Code(s): 53515542 Comment: -hold glipizide -Fingersticks and lispro ss AC (3) GERD (gastroesophageal reflux disease) Status: Acute Code(s): K21.9 - GASTRO-ESOPHAGEAL REFLUX DISEASE WITHOUT ESOPHAGITIS SNOMED Code(s): 116375013 Comment: -Pantoprazole (4) HTN (hypertension) Status: Acute Code(s): I10 - ESSENTIAL (PRIMARY) HYPERTENSION SNOMED Code(s) : 24282331 Comment: -continue home diovan with holding parameters for SBP less than 110 (5) DVT prophylaxis Status: Acute Code(s): Z29.9 - ENCOUNTER FOR PROPHYLACTIC MEASURES, UNSPECIFIED SNOMED Code(s): 350104016 Comment: - eliquis (6) Full code status Status: Acute Code(s): Z78.9 - OTHER SPECIFIED HEALTH STATUS SNOMED Code(s) : 250063062 Status and Disposition: disposition per ortho
[2018-11-28] MEDS ORDERED: Bisacodyl SUPP* 10 MG SUPP PR PRN (12:51)
== END 2018-11-27 16:15 | disposition home health service (06) | DRG 470 ==
LOC: AA 07:23 → SSU 12:51
PROVIDERS: ADMIT Orthopaedic Surgery Adult Reconstructive Orthopaedic Surgery; ATTEND Orthopaedic Surgery Adult Reconstructive Orthopaedic Surgery
PROC: 0SRD0J9 Replacement of Left Knee Joint with Synthetic Substitute, Cemented, Open Approach (ICD-10-PCS; principal; 2018-11-26 10:30)
DX: M17.12 Unilateral primary osteoarthritis, left knee (principal); I10 Essential (primary) hypertension; M25.762 Osteophyte, left knee; M25.462 Effusion, left knee; M17.0 Bilateral primary osteoarthritis of knee; E11.9 Type 2 diabetes mellitus without complications; K21.9 Gastro-esophageal reflux disease without esophagitis; Z85.51 Personal history of malignant neoplasm of bladder; Z90.49 Acquired absence of other specified parts of digestive tract; Z98.41 Cataract extraction status, right eye; Z98.42 Cataract extraction status, left eye; Z91.041 Radiographic dye allergy status; Z87.891 Personal history of nicotine dependence; Z72.89 Other problems related to lifestyle
CPT/HCPCS: 36415; 80048; 85014; 85018; 85049; 88305; 88311; A9270-GY; C1776; G8978-GP-CI; G8978-GP-CJ; G8979-GP-CI; J0690; J2250; J2704; J2795; J3010; J3490; J8540

== ENCOUNTER 2018-11-30 12:51 | Observation (INO) | payer MEDICARE ==
--- NOTE | 2018-11-30 14:00 | ED ---
Shortness of Breath - HPI Summary HPI Summary: Pt is a 78 y/o M presenting to the ED with a chief complaint of SOB. He recently had surgery on his L knee done by Dr. Ochoa, and his home health nurse advised him to come into the ED for crackling in his lungs. Pt denies CP, feeling warm, or any myalgia outside of his leg. He was short of breath and wheezing yesterday, and notes increase in pain of his L knee. - History of Current Complaint Chief Complaint: EDGeneral Time Seen by Provider: 11/30/18 13:13 Hx Obtained From: Patient Onset/Duration: Sudden Onset, Lasting Hours, Still Present Timing: Constant Current Severity: None Aggravating Factors: Nothing Alleviating Factors: Nothing Associated Signs & Symptoms: Wheezing - Allergy/Home Medications Allergies/Adverse Reactions: Allergies Allergy/AdvReac Type Severity Reaction Status Date / Time Iodinated Contrast Media Allergy Severe Hives Verified 11/30/18 13:11 [Iodinated Contrast- Oral and IV Dye] iodine Allergy Severe Hives Verified 11/30/18 13:11 Home Medications: Home Medications Meloxicam(NF) [Mobic(NF)] 15 mg PO DAILY 11/30/18 [History Confirmed 11/30/18] Pravastatin (NF) [Pravachol (NF)] 10 mg PO DAILY 11/30/18 [History Confirmed ] Sildenafil Citrate 50 - 100 mg PO DAILY PRN 11/30/18 [History Confirmed 11/30/18 ] Valsartan [Valsartan 320 MG] 320 mg PO DAILY 11/30/18 [History Confirmed ] PMH/Surg Hx/FS Hx/Imm Hx Previously Healthy: Yes Endocrine/Hematology History: Reports: Hx Diabetes - DIABETIC-ON MEDS Cardiovascular History: Reports: Hx Hypertension - MEDICATED Denies: Hx Pacemaker/ICD Respiratory History: Denies: Hx Asthma GI History: Reports: Hx Gastroesophageal Reflux Disease History: Reports: Hx Kidney Stones Denies: Hx Renal Disease Musculoskeletal History: Reports: Hx Arthritis Sensory History: Reports: Hx Contacts or Glasses - glasses Denies: Hx Hearing Aid Opthamlomology History: Reports: Hx Contacts or Glasses - glasses Psychiatric History: Denies: Hx Panic Disorder - Cancer History Cancer Type, Location and Year: BLADDER CANCER WITH TUMOR REMOVAL. NECK/FACIAL BASAL CELL CA REMOVED Hx Chemotherapy: Yes - chemo x3 days Hx Radiation Therapy: No - Surgical History Surgery Procedure, Year, and Place: APPY,. LAP STEVO,. BLADDER CA WITH TUMOR REMOVAL ,. RT ANKLE ORIF,. CARPAL TUNNEL BILATERAL WRISTS,. CATARACT REPAIR BILATERALLY. EUSTACHIAN TUBES Hx Anesthesia Reactions: Yes - after gallbladder surgery, different anesthsia used and hallucinations Infectious Disease History: No Infectious Disease History: Denies: Traveled Outside the [place] in Last 30 Days - Family History Known Family History: Negative: Diabetes - Social History Alcohol Use: Occasionally Alcohol Amount: 1 shot every night Hx Substance Use: No Substance Use Type: Reports: None Hx Tobacco Use: Yes Smoking Status (MU): Former Smoker Type: Cigarettes Amount Used/How Often: 1ppd Length of Time of Smoking/Using Tobacco: QUIT AT 35 Review of Systems Negative: Fever - subjective Negative: Chest Pain Positive: Shortness Of Breath Positive: Arthralgia - L knee. Negative: Myalgia All Other Systems Reviewed And Are Negative: Yes Physical Exam - Summary Physical Exam Summary: Constitutional: Well-developed, Well-nourished, Alert. (-) Distressed Skin: Warm, Dry HENT: Normocephalic; Atraumatic Eyes: Conjunctiva normal Neck: Musculoskeletal ROM normal neck. (-) JVD, (-) Stridor, (-) Tracheal deviation Cardio: Rhythm regular, rate normal, Heart sounds normal; Intact distal pulses; Radial pulses are 2+ and symmetric. (-) Murmur Pulmonary/Chest wall: Effort normal. (-) Respiratory distress, (-) Wheezes, (-) Rales Abd: Soft, (-) tenderness, (-) Distension, (-) Guarding, (-) Rebound Musculoskeletal: L knee incision is intact. There is no drainage. It is erythematous and warm. Lymph: (-) Cervical adenopathy Neuro: Alert, Oriented x3 Psych: Mood and affect Normal Triage Information Reviewed: Yes Vital Signs On Initial Exam: Initial Vitals Temp Pulse Resp BP Pulse Ox 99 F 106 16 142/82 97 11/30/18 13:05 11/30/18 13:05 11/30/18 13:05 11/30/18 13:05 11/30/18 13:05 Vital Signs Reviewed: Yes Procedures - Sedation Patient Received Moderate/Deep Sedation with Procedure: No Diagnostics - Vital Signs Vital Signs Temp Pulse Resp BP Pulse Ox 11/30/18 13:05 99 F 106 16 142/82 97 - Laboratory Result Diagrams: 11/30/18 15:00 11/30/18 15:00 Lab Statement: Any lab studies that have been ordered have been reviewed, and results considered in the medical decision making process. - Radiology CXR Radiology Interpretation Completed By: Radiologist Summary of Radiographic Findings: Cardiomegaly. ED physician has reviewed this report. VQ scan Radiology Interpretation Completed By: Radiologist Summary of Radiographic Findings: No evidence for pulmonary embolism. ED physician has reviewed this report. - EKG 1337 Cardiac Rate: Tachycardia - 114bpm EKG Rhythm: Sinus Tachycardia ST Segment: Normal Ectopy: None Summary of EKG Findings: EKG at 1337 shows sinus tachycardia at 114bpm with no STEMI. ED physician has reviewed and interpreted this report. Course/Dx - Course Course Of Treatment: Patient is here with an episode of shortness of breath that resolved. Upon arrival, patient was tachycardic and did has some erythema and warmth to his left knee where he had surgery 5 days ago. Patient was given 2 L of IV fluid no improvement in his heart rate. Patient had a d-dimer sent which was positive. Patient had a VQ scan that showed no evidence of PE. Patient was seen by orthopedic surgery who does not believe patient has an infected knee. Patient remained tachycardic on the ED so he was admitted to the hospital for further monitoring and evaluation. - Diagnoses Provider Diagnoses: Tachycardia - Physician Notifications Discussed Care of Patient With: Ryan Osuna Time Discussed With Above Provider: 18:37 Instructed by Provider To: Admit As Inpatient Discharge ED - Sign-Out/Discharge Documenting (check all that apply): Patient Departure - Discharge Plan Condition: Stable Disposition: ADMITTED TO [facility] Referrals: Gregg Keyes DO [Primary Care Provider] - - Billing Disposition and Condition Condition: STABLE Disposition: Admitted to [facility] - Attestation Statements Document Initiated by Scribe: Yes Documenting Scribe: Susanne Magallon Provider For Whom Arinibe is Documenting (Include Credential): Philippe Sullivan MD. Scribe Attestation: Susanne Miller, arinibed for Philippe Sullivan MD. on 11/30/18 at 2113. Scribe Documentation Reviewed: Yes Provider Attestation: The documentation as recorded by the scribe, Susanne Magallon accurately reflects the service I personally performed and the decisions made by me, Philippe Sullivan MD. Status of Scribe Document: Viewed
[2018-11-30] MEDS ORDERED: NS 0.9% 1000 ML** 1,000 ML IV ONE ×2 (14:18→15:52)
[2018-11-30 15:17] LABS: ABS Eosinophils 0.1 10^3/ul (0-0.6); ABS Lymphocytes 0.8 10^3/ul (1.0-4.8); ABS Monocytes 1.1 10^3/ul (0-0.8); ABS Neutrophils 7.9 10^3/ul (1.5-7.7); Eosinophil % 0.7 %; Hematocrit 37 % (42-52); Hemoglobin 12.4 g/dL (14.0-18.0); Lymphocyte % 7.9 %; Mean Corpuscular HGB Conc 33 g/dL (31-36); Mean Corpuscular Hemoglobin 30 pg (27-31); Mean Corpuscular Volume 91 fL (80-94); Mean Platelet Volume 7.7 fL (7.4-10.4); Platelet Count 337 10^3/uL (150-450); Red Blood Count 4.12 10^6 /uL (4.18-5.48); Red Cell Distribution Width 14 % (10-15); White Blood Count 9.8 10^3/uL (3.5-10.8)
--- NOTE | 2018-11-30 17:50 | CONS ---
CONSULTATION REPORT: DATE OF CONSULT: 11/30/18 ATTENDING ORTHOPEDIC PROVIDER: Dr. Ophelia Ochoa. CHIEF COMPLAINT: Upon arrival to the emergency room, there was crackling in his lungs. Orthopedics was asked to see him today due to the patient being status post left total knee with some erythema of the anterior knee. HISTORY OF PRESENT ILLNESS: The patient is a 78-year-old male who presented to [facility] on 11/30/18 around 11 a.m. Orthopedics has been asked to see him due to left total knee done by Dr. Ophelia Ochoa on 11/26/18 without complication. He was discharged home on 11/27/18 without complications. The patient states that upon arrival home, he had 6 stairs to enter the house, this was excruciatingly painful and he has had difficulty mobilizing and has been slow to mobilize in his home, though he has not had falls and he has continued working with physical therapy. Today, he reports severe pain of the left knee. He has not had any pain medications since 9 a.m. due to being in the emergency room. At home, he has been taking 2 tabs of oxycodone every 4 hours. He has been able to continue walking with a walker at home and working with physical therapy, though he reports he has been having severe pain in the left knee and there has been some redness anteriorly. Visiting home nurse had sent him in due to hearing crackles in his lungs and fatigue. The patient reports that he does not feel short of breath or have any chest pain. He has been on Eliquis 2.5 mg p.o. b.i.d. since discharge for DVT prophylaxis and he has no history of blood clot. PAST MEDICAL HISTORY: Significant for hypertension, diabetes, GERD, and bladder cancer. PAST SURGICAL HISTORY: ORIF right ankle, left total knee replacement, appendectomy, cholecystectomy, bilateral carpal tunnel release, and bladder surgery. ALLERGIES: IODINE CONTRAST, hives. FAMILY HISTORY: Diabetes. SOCIAL HISTORY: A 78-year-old gentleman who lives at home with his . He does not smoke or use drugs. Drinks approximately 1 beer per night. REVIEW OF SYSTEMS: General: Negative for feeling of fever or chills. Cardiac : Negative for chest pain. Respiratory: Negative for shortness of breath. Positive for home nurse reporting crackles at the lungs. Abdomen: Negative for any nausea. Musculoskeletal: Positive for left knee pain since surgery, which has not been progressively worsening, though he reports it has been more and more difficult to ambulate with his walker. Neuro: Denies any decreased sensation, numbness, or tingling of the extremities. Hematology: Negative for history of blood clot. PHYSICAL EXAM: Vital Signs: Temperature 99.0, heart rate 113, respiratory rate 23, oxygen saturation 97% on room air, blood pressure 126/97. General: The patient is well appearing, in no acute distress, nontoxic appearing. HEENT : Normocephalic, atraumatic. Pulmonary: Normal rate and effort of breathing. Abdomen: Nondistended. Musculo-skeletal: Left lower extremity: There is a midline surgical incision, which is healing well without any discharge. There is erythema anteriorly on the knee without any proximal streaking. The knee is globally tender. Passive range of motion from 0 to 45 degrees is entirely nonpainful. The patient becomes very stiff after 45 degrees, and beyond 60 degrees, expresses that it becomes very painful. There is a moderate knee effusion and warmth of the knee. Neuro: Sensation intact to light touch throughout left lower extremity. DIAGNOSTIC STUDIES/LAB DATA: White blood cell count 9.8, hemoglobin 12.4, hematocrit 37. Sed rate is pending. D-dimer is 562. ASSESSMENT: Left knee status post total knee replacement on 11/26/[address] Ophelia Ochoa, most likely diagnosis is hematoma,septic knee is of lower likelihood as passive range of motion 0-45 is completely nonpainful and he remains able to ambulate PLAN: The patient can be weightbearing as tolerated. Please provide him with pain medication in the emergency room as he has had no pain medications since 9 a.m. A V/Q scan is being obtained to rule out pulmonary embolism as the patient is tachycardic and is high risk due to recent orthopedic surgery despite the fact that he has been on appropriate DVT prophylaxis with Eliquis. I have discussed this case with Dr. Ophelia Ochoa. She agrees with this assessment and plan. The patient should follow up in the Orthopedic Clinic later this week, sooner with any concerns including worsening pain, redness, drainage or fever. If the patient develops fever, chills, or knee pain becomes intolerable, unable to walk, if there is any discharge, please return back to the emergency room right away. BRENDA VILLALOBOS, ZEHRA [id number]/[facility] #: [id number] [facility] HOSPITALFarheen
[2018-11-30 18:31] LABS: Erythrocyte Sed Rate 108 mm/Hr (0-19)
[2018-11-30 18:52] LABS: Albumin 3.6 g/dL (3.2-5.2); BUN/Creatinine Ratio 19.7 (8-20); C Reactive Protein 325.81 mg/L (<8.01); Calcium 10.2 mg/dL (8.6-10.3); EGFR African American 60.8 (>60); EGFR Non-African American 50.3 (>60); Globulin 3.5 g/dL (2-4); Potassium 4.5 mmol/L (3.5-5.0); Total Bilirubin 0.7 mg/dL (0.2-1.0); Total Protein 7.1 g/dL (6.4-8.9)
[2018-11-30] MEDS ORDERED: HYDROcodone/ACETAMIN 5-325 MG* 1 TAB PO ONE (18:55)
[2018-11-30] MEDS ORDERED: Ondansetron INJ* 2 MG/ML VIAL IV PRN (20:27)
[2018-11-30 22:18] LABS: TSH (Thyroid Stimulating Horm) 0.32 mcIU/mL (0.34-5.60)
[2018-11-30 22:20] LABS: Free T4 1.29 ng/dL (0.61-1.12)
--- NOTE | 2018-11-30 22:43 | HP ---
ADMISSION HISTORY AND PHYSICAL: DATE OF ADMISSION: 11/30/18 PRIMARY CARE PHYSICIAN: Dr. Keyes. PROVIDER: Myriam Nelson NP. ATTENDING PHYSICIAN: Dr. Evans.* (DICTATED BY MYRIAM NELSON NP) OTHER PROVIDERS: ZEHRA Christopher. HISTORY OF PRESENT ILLNESS: This is a 78-year-old patient with a past medical history significant for diabetes type 2, hypertension, GERD, and bladder cancer who came to the emergency room today with complaints of wheezing. The patient recently had a left total knee replacement performed on 11/26/18 and was discharged home on 11/27/18. Starting yesterday, the patient choked on water twice and then after that began wheezing and felt short of breath at times. Denied any chest pain or shortness of breath. Denied any sputum production, fever, or chills. In the emergency room, chest x-ray, lung V/Q scan, and EKG performed. Labs were drawn, received a total of 2000 mL of fluid, and was seen by Susan Love. The hospitalists were asked to evaluate the patient for admission. PAST MEDICAL HISTORY: Diabetes type 2, hypertension, GERD, kidney stones, osteoarthritis, and bladder cancer. 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 MEDICATIONS: 1. Valsartan/hydrochlorothiazide 320 mg/25 mg 1 tab p.o. q.a.m. 2. Pantoprazole 40 mg p.o. q.a.m. 3. Pravastatin 10 mg p.o. daily. 4. Gabapentin 300 mg p.o. b.i.d. 5. Meloxicam 15 mg p.o. daily; though on hold while on 6. Apixaban 2.5 mg p.o. b.i.d. 7. Fenofibrate 160 mg p.o. q.a.m. 8. Glipizide 5 mg p.o. q.a.m. 9. Sildenafil citrate 50 to 100 mg p.o. daily p.r.n. ALLERGIES: CONTRAST MEDIA and IODINE. FAMILY HISTORY: The patient stated that there was no significant family history of any illness. SOCIAL HISTORY: Denies any tobacco or recreational substance use, though drinks about 1 beer at night. He is a retired maldonado. Lives with his . REVIEW OF SYSTEMS: An 11-point system review was performed. The patient reports dry eyes, coughing without sputum production, saying that he feels like his left leg is hot, pain to left knee at rest is 6/10, though can go up to 10/ 10 with movement. PHYSICAL EXAMINATION GENERAL: This is a well-developed gentleman, seen resting in bed, appears flushed, no acute distress noted. VITAL SIGNS: Temperature of 99.0 Fahrenheit, 128 pulse, 16 respirations, 91% oxygen on room air, 133/68 blood pressure. HEENT: Eyes: Conjunctivae injected, dry. Pupils are equal, round, and reactive. EOMs intact. ENT: Mucous membranes moist. Oropharynx clear. NECK: Supple. No cervical lymphadenopathy noted. RESPIRATORY: Lung sounds clear throughout bilaterally on room air. No accessory muscle use noted. CARDIAC: S1, S2. Heart rate regular. Tachycardic. No murmurs, gallops, or rubs appreciated. ABDOMEN: Soft, nontender, nondistended with positive bowel sounds x4. MUSCULOSKELETAL: No clubbing or cyanosis appreciated. Left leg is more erythematous and edematous than the right leg. Able to perform dorsiflexion and plantar flexion. Pedal pulses are 2+. Able to move all extremities. SKIN: Erythema to left lower extremity. Incision to left knee is open to air. Sutures intact with bruising noted around the incision. No drainage. NEUROLOGIC: The patient is alert and oriented to time and self, though not place. Sensation intact to light touch. DIAGNOSTIC STUDIES/LAB DATA: Pertinent Lab Data: RBCs 4.12, hemoglobin 12.4, hematocrit 37. ESR 108. D-dimer 562. Sodium 134, chloride 94, BUN 27, creatinine 1.37, glucose 182, lactic acid 0.6, C-reactive protein 325.81. Diagnostic Studies: Chest x-ray showed cardiomegaly. EKG showed sinus tachycardia. V/Q lung scan showed no evidence for pulmonary embolism. Unable to perform CTA of chest due to CONTRAST ALLERGY. ASSESSMENT AND PLAN: My impression is that this is a 78-year-old male with a past medical history significant for bladder cancer, hypertension, and diabetes type 2 who was admitted on 11/30/18 with tachycardia, rule out embolism. 1. Tachycardia. EKG showed sinus tachycardia without any ST changes. Denies any chest pain or palpitations. We will place the patient on continuous telemetry monitoring. Thought that this might be secondary to dehydration and the patient received 2 L of fluid in the emergency room. Will continue normal saline at 100. Bilateral venous Doppler to be done of lower extremities to rule out clot in the leg. 2. Acute kidney injury. Creatinine is 1.37, which is up from his creatinine drawn on 11/27/18, which was 1.09. Again, the patient received fluids in the emergency room. Will continue to receive fluids here. Recheck BMP in the morning. 3. Status post left total knee replacement. Susan Love has been consulted with seeing the patient in the emergency room, who does not believe that there is an infection in the knee due to lack of white blood cell count and passive range of motion completely nonpainful. felt that the patient was struggling to move around at home and requested short-term rehab placement, Physical Therapy/Occupational Therapy consult, and PMRU referral placed. Continue Tylenol 975 mg t.i.d. for pain control along with oxycodone as needed, though the patient has exhibited some signs of forgetfulness since the surgery, which was felt by a family member to be due to the oxycodone. Spoke with the patient and encouraged that he decrease his use of the oxycodone, which he had been needing about 10 mg every 4 hours around the clock since discharge. 4. Diabetes type 2. Continue glipizide from home. Fingersticks a.c. Provider to be notified if blood sugar is less than 70 or greater than 200. 5. Gastroesophageal reflux disease. No signs or symptoms of indigestion at this time. Continue Protonix. 6. Hyperlipidemia. Continue pravastatin and fenofibrate. 7. Hypertension due to acute kidney injury. To hold hydrochlorothiazide and valsartan for now. We will recheck BMP in the morning. 8. DVT prophylaxis. Continue Eliquis 2.5 b.i.d. 9. Code status. Full code. 10. Disposition. Admit inpatient to [address] [place] [address]. 11. Condition is guarded. TIME SPENT: Time spent on the patient is about 60 minutes with about half of that spent [id number]. Plan of care was discussed with the attending, Dr. Evans, and he agrees. MYRIAM NELSON, TABLE SAW OPERATOR [id number]/[facility] #: [id number] [facility]OSPITALFarheen
[2018-12-01] MEDS: Gabapentin CAP(*) 300 MG PO SCH ×3 (00:03→20:07)
[2018-12-01] MEDS: Docusate CAP* 100 MG PO SCH ×3 (00:03→20:07)
[2018-12-01] MEDS: Senna TAB 8.6 mg* TAB PO SCH ×2 (00:03→20:07)
[2018-12-01] MEDS: Acetaminophen TAB* 325 MG PO SCH ×4 (00:04→20:06)
[2018-12-01] MEDS: oxyCODONE TAB* 5 MG TAB PO PRN ×2 (00:04→22:09)
[2018-12-01] MEDS: Apixaban* 2.5 MG TAB PO SCH ×3 (00:05→20:07)
[2018-12-01 06:53] LABS: BUN/Creatinine Ratio 20.4 (8-20); Calcium 9.6 mg/dL (8.6-10.3); EGFR African American 75.9 (>60); EGFR Non-African American 62.8 (>60); Potassium 3.9 mmol/L (3.5-5.0)
[2018-12-01 09:24] LABS: ABS Eosinophils 0.1 10^3/ul (0-0.6); ABS Lymphocytes 1.1 10^3/ul (1.0-4.8); ABS Monocytes 1.3 10^3/ul (0-0.8); ABS Neutrophils 5.3 10^3/ul (1.5-7.7); Eosinophil % 1.5 %; Hematocrit 34 % (42-52); Hemoglobin 11.2 g/dL (14.0-18.0); Lymphocyte % 14.6 %; Mean Corpuscular HGB Conc 33 g/dL (31-36); Mean Corpuscular Hemoglobin 30 pg (27-31); Mean Corpuscular Volume 91 fL (80-94); Mean Platelet Volume 7.9 fL (7.4-10.4); Platelet Count 326 10^3/uL (150-450); Red Blood Count 3.75 10^6 /uL (4.18-5.48); Red Cell Distribution Width 14 % (10-15); White Blood Count 7.8 10^3/uL (3.5-10.8)
[2018-12-01] MEDS: CMCS: Pravastatin (NF) 20 MG TAB PO SCH (10:10)
[2018-12-01] MEDS: Pantoprazole TAB * 40 MG TAB PO SCH (10:12)
[2018-12-01] MEDS: glipiZIDE TAB.XL* 5 MG PO SCH (10:12)
[2018-12-01] MEDS ORDERED: Metoprolol Tartrate IV* 1 MG/ML 5 ML VIAL IV PRN (10:54)
[2018-12-01] MEDS ORDERED: Dextrose 50% VIAL 50 ml IV PUSH PRN (12:46)
--- NOTE | 2018-12-01 13:39 | PN ---
Subjective Date of Service: 12/01/18 Interval History: Mr. Boateng states that he is feeling better today. States he was up and to chair with pain, but without difficulty today, which he was unable to do yesterday. He reports improvement in SOB and denies cough, fever, chills, diarrhea, dysuria, frequency, urgency. He has pain in the L knee. Denies palpitations. No other complaints today. Objective Active Medications: Acetaminophen (Tylenol Tab*) 975 mg PO TID [facility] Apixaban (Eliquis*) 2.5 mg PO BID [facility] Dextrose (Dextrose 50% Vial 50 Ml*) 25 ml IV PUSH .FOR FS < 60 - SS PRN Docusate Sodium (Colace Cap*) 100 mg PO BID [facility] Fenofibrate (Tricor 160 Mg) 160 mg PO QAM [facility]; Protocol Gabapentin (Neurontin Cap(*)) 300 mg PO BID [facility] Glipizide (Glucotrol Xl*) 5 mg PO QAM [facility] Sodium Chloride (Ns 0.9% 1000 Ml) 1,000 mls @ 100 mls/hr IV PER RATE [facility] Insulin Human Lispro (Humalog*) 0 units SUBCUT AC [facility]; Protocol Metoprolol Tartrate (Lopressor Iv*) 5 mg IV Q6H PRN Ondansetron HCl (Zofran Inj*) 4 mg IV Q4H PRN Oxycodone HCl (Roxycodone Tab*) 5 mg PO Q4H PRN Oxycodone HCl (Roxycodone Tab*) 10 mg PO Q4H PRN Pantoprazole Sodium (Protonix Tab*) 40 mg PO QAM [facility] Pravastatin Sodium (Pravachol (Nf)) 20 mg PO DAILY [facility] Senna (Senokot 8.6 Mg Tab*) 1 tab PO BEDTIME [facility] Vital Signs: Temp Pulse Resp BP Pulse Ox 99 F 117 20 161/66 97 12/01/18 11:25 12/01/18 11:25 12/01/18 11:25 12/01/18 11:25 12/01/18 11:25 Oxygen Devices in Use Now: None Appearance: Pt is older white male, overweight, sitting up in bed, HOB elevated. He appears to be in no acute distress; appears comfortable. Eyes: No Scleral Icterus, PERRLA Ears/Nose/Mouth/Throat: NL Teeth, Lips, Gums, Clear Oropharnyx, Mucous Membranes Moist Neck: NL Appearance and Movements; NL JVP, Trachea Midline Respiratory: Symmetrical Chest Expansion and Respiratory Effort, Clear to Auscultation - without wheeze, rhinchi, rales Cardiovascular: NL Sounds; No Murmurs; No JVD, RRR, - - 1+ pitting LLE pretibial edema, trace RLE pretibial edema Abdominal: NL Sounds; No Tenderness; No Distention, No Hepatosplenomegaly Extremities: No Clubbing, Cyanosis Skin: - - L knee with sutures in place to operative incision site, approximated , without drainage; L knee with surrounding erythema, warmth that extends to medial thigh Neurological: Alert and Oriented x 3 Result Diagrams: 12/01/18 05:57 12/01/18 06:03 Assess/Plan/Problems-Billing Assessment: 78 yom PMHx DM II, HTN, s/p L TKA 11/26/2017 who presents with tachycardia, ROMEO. - Patient Problems (1) Tachycardia Comment: -Pt with tacycardia -CXR: cardiomegaly; no acute abnormality -US b/l LE: no evidence of DVT -V/Q scan: no evidence of PE -Ortho consulted: low suspicion for knee infection -UA ordered (2) Status post total knee replacement, left Comment: -PT/OT, WBAT -Continue DVT ppx -Follow up as scheduled (3) ROMEO (acute kidney injury) Comment: -Resolved with IVF administration (4) Diabetes mellitus Comment: -Continue glipizide -Fingersticks and lispro ss AC (5) HTN (hypertension) Comment: -Restart home valsartan -Med rec for valsartan vs valsartan/HCTZ (6) HLD (hyperlipidemia) Comment: -Pravastatin, fenofibrate (7) GERD (gastroesophageal reflux disease) Comment: -Pantoprazole (8) DVT prophylaxis Comment: -Apixaban (9) Full code status Status and Disposition: Observation. Discharge when stable. May need MIKA.
[2018-12-01] MEDS ORDERED: Valsartan TAB* 160 MG PO SCH (14:00)
[2018-12-01] MEDS: NS 0.9% 1000 ML** 1,000 ML IV SCH ×2 (14:31→19:42)
[2018-12-01] MEDS ORDERED: Valsartan/HCTZ 320/25(NF) TAB PO SCH (15:48)
[2018-12-01] MEDS: Valsartan TAB* 160 MG PO SCH (16:15)
[2018-12-01] MEDS: Hydrochlorothiazide TAB* 25 MG PO SCH (16:15)
[2018-12-01] MEDS: Insulin LISPRO* 1 UNITS UNIT SUBCUT SCH (17:19)
[2018-12-01 22:22] LABS: Urine Appearance Cloudy; Urine Bacteria 1+ (Absent); Urine Bilirubin Negative (Negative); Urine Blood Negative (Negative); Urine Color Yellow; Urine Glucose Negative (Negative); Urine Ketones Negative (Negative); Urine Nitrite Positive (Negative); Urine Protein Negative (Negative); Urine Red Blood Cell Absent (Absent); Urine Specific Gravity 1.012 (1.010-1.030); Urine Urobilinogen Negative (Negative); Urine White Blood Cell 3+(>20/hpf) (Absent)
[2018-12-02] MEDS: oxyCODONE TAB* 5 MG TAB PO PRN ×5 (04:01→19:33)
[2018-12-02] MEDS: NS 0.9% 1000 ML** 1,000 ML IV SCH ×2 (06:10→17:31)
[2018-12-02] MEDS: Docusate CAP* 100 MG PO SCH ×2 (08:39→20:42)
[2018-12-02] MEDS: Insulin LISPRO* 1 UNITS UNIT SUBCUT SCH ×3 (08:39→17:29)
[2018-12-02] MEDS: Acetaminophen TAB* 325 MG PO SCH ×3 (08:39→20:42)
[2018-12-02] MEDS: CMCS: Pravastatin (NF) 20 MG TAB PO SCH (08:39)
[2018-12-02] MEDS: Hydrochlorothiazide TAB* 25 MG PO SCH (08:39)
[2018-12-02] MEDS: glipiZIDE TAB.XL* 5 MG PO SCH (08:40)
[2018-12-02] MEDS: Valsartan TAB* 160 MG PO SCH (08:40)
[2018-12-02] MEDS: Gabapentin CAP(*) 300 MG PO SCH ×2 (08:40→20:43)
[2018-12-02] MEDS: Pantoprazole TAB * 40 MG TAB PO SCH (08:40)
[2018-12-02] MEDS: Apixaban* 2.5 MG TAB PO SCH ×2 (08:40→20:43)
[2018-12-02] MEDS ORDERED: Valsartan/HCTZ 320/25(NF) TAB PO SCH (09:00)
[2018-12-02] MEDS: cefTRIAXone(*) 1 GM in NS 0.9% 50 ML* 50 ML IVPB SCH (09:45)
--- NOTE | 2018-12-02 17:08 | PN ---
Subjective Date of Service: 12/02/18 Interval History: Mr. Boateng c/o continued L knee pain, which he believes is the same as yesterday. He c/o increased frequency and urgency of urination without dysuria , retention. He is concerned that he is getting too many carbohydrates with meals. He has been up with PT, and notes that this is painful. He has no other complaints today. Objective Active Medications: Acetaminophen (Tylenol Tab*) 975 mg PO TID [facility] Last Admin: 12/02/18 12:56 Dose: 975 mg Apixaban (Eliquis*) 2.5 mg PO BID [facility] Last Admin: 12/02/18 08:40 Dose: 2.5 mg Dextrose (Dextrose 50% Vial 50 Ml*) 25 ml IV PUSH .FOR FS < 60 - SS PRN PRN Reason: FS < 60 Docusate Sodium (Colace Cap*) 100 mg PO BID [facility] Last Admin: 12/02/18 08:39 Dose: 100 mg Fenofibrate (Tricor 160 Mg) 160 mg PO QAM [facility]; Protocol Last Admin: 12/02/18 08:40 Dose: 160 mg Gabapentin (Neurontin Cap(*)) 300 mg PO BID [facility] Last Admin: 12/02/18 08:40 Dose: 300 mg Glipizide (Glucotrol Xl*) 5 mg PO QAM [facility] Last Admin: 12/02/18 08:40 Dose: 5 mg Hydrochlorothiazide (Hydrodiuril Tab*) 25 mg PO DAILY [facility] Last Admin: 12/02/18 08:39 Dose: 25 mg Sodium Chloride (Ns 0.9% 1000 Ml) 1,000 mls @ 100 mls/hr IV PER RATE [facility] Last Admin: 12/02/18 06:10 Dose: 100 mls/hr Ceftriaxone Sodium 1 gm/ (Sodium Chloride) 50 mls @ 100 mls/hr IVPB Q24H [facility] Last Admin: 12/02/18 09:45 Dose: 100 mls/hr Insulin Human Lispro (Humalog*) 0 units SUBCUT AC [facility]; Protocol Last Admin: 12/02/18 12:56 Dose: 4 units Metoprolol Tartrate (Lopressor Iv*) 5 mg IV Q6H PRN PRN Reason: HR > 100 Ondansetron HCl (Zofran Inj*) 4 mg IV Q4H PRN PRN Reason: NAUSEA/VOMITING Oxycodone HCl (Roxycodone Tab*) 5 mg PO Q4H PRN PRN Reason: PAIN - MODERATE Last Admin: 12/02/18 14:00 Dose: 5 mg Oxycodone HCl (Roxycodone Tab*) 10 mg PO Q4H PRN PRN Reason: PAIN - SEVERE Last Admin: 12/02/18 04:01 Dose: 10 mg Pantoprazole Sodium (Protonix Tab*) 40 mg PO QAM [facility] Last Admin: 12/02/18 08:40 Dose: 40 mg Pravastatin Sodium (Pravachol (Nf)) 20 mg PO DAILY [facility] Last Admin: 12/02/18 08:39 Dose: 20 mg Senna (Senokot 8.6 Mg Tab*) 1 tab PO BEDTIME [facility] Last Admin: 12/01/18 20:07 Dose: 1 tab Valsartan (Diovan Tab*) 320 mg PO QAM [facility] Last Admin: 12/02/18 08:40 Dose: 320 mg Vital Signs: Temp Pulse Resp BP Pulse Ox 97.5 F 75 16 161/62 97 12/02/18 15:15 12/02/18 15:15 12/02/18 16:44 12/02/18 15:15 12/02/18 15:15 Oxygen Devices in Use Now: None Appearance: Pt is an older overweight white male who is sitting in bed with HOB elevated. He appears mildly uncomfortable, but in no acute distress. Eyes: No Scleral Icterus, PERRLA Ears/Nose/Mouth/Throat: NL Teeth, Lips, Gums, Clear Oropharnyx, Mucous Membranes Moist Neck: NL Appearance and Movements; NL JVP, Trachea Midline Respiratory: Symmetrical Chest Expansion and Respiratory Effort, Clear to Auscultation Cardiovascular: NL Sounds; No Murmurs; No JVD, RRR Abdominal: NL Sounds; No Tenderness; No Distention, No Hepatosplenomegaly Extremities: No Clubbing, Cyanosis, - - LLE with + pitting edema to knee; L anterior knee with sutures in place, skin approximated; area with erythema, edema, mild erythema traveling up L medial thigh. Slow, mildly painful AROM to 45-degrees Neurological: Alert and Oriented x 3, NL Sensation Result Diagrams: 12/01/18 05:57 12/01/18 06:03 Microbiology and Other Data: Microbiology 11/30/18 15:10 Aerobic Blood Culture - Preliminary Blood Venous No Growth Day 2 Anaerobic Blood Culture - Preliminary No Growth Day 2 11/30/18 15:00 Aerobic Blood Culture - Preliminary Blood Venous No Growth Day 2 Assess/Plan/Problems-Billing Assessment: 78 yom PMHx DM II, HTN, s/p L TKA 11/26/2017 who presents with tachycardia, ROMEO. - Patient Problems (1) UTI (urinary tract infection) Comment: -UA: 3+ LE, + nitrates, 1+ bacteria; symptomatic -Start ceftriaxone today (2) Tachycardia Comment: -Resolved -Pt presented with tacycardia -CXR: cardiomegaly; no acute abnormality -US b/l LE: no evidence of DVT -V/Q scan: no evidence of PE -Ortho consulted: low suspicion for knee infection -UA 3+LE, +nitrates, 1+ bacteria; start ceftriaxone today (3) Status post total knee replacement, left Comment: -PT/OT, WBAT -Continue DVT ppx -Follow up as scheduled (4) Diabetes mellitus Comment: -Continue glipizide -Fingersticks and lispro ss AC (5) HTN (hypertension) Comment: -Elevated SBP 130-160's -Restart home valsartan/HCTZ (6) HLD (hyperlipidemia) Comment: -Pravastatin, fenofibrate (7) GERD (gastroesophageal reflux disease) Comment: -Pantoprazole (8) DVT prophylaxis Comment: -Apixaban (9) Full code status Status and Disposition: Observation. Discharge when stable. May need MIKA.
--- NOTE | 2018-12-02 17:56 | PN ---
Progress Note - Progress Note Date of Service: 12/02/18 SOAP: Subjective: Pt. reports the knee pain is improving, he complains of redness along his inner thigh and anterior knee. He was readmitted with tachycardia and UTI. He has been on keflex. Objective: Vital Signs: Temp Pulse Resp BP Pulse Ox 97.5 F 75 18 161/62 97 12/02/18 15:15 12/02/18 15:15 12/02/18 17:38 12/02/18 15:15 12/02/18 15:15 Laboratory Results - last 24 hr 12/01/18 12/01/18 12/02/18 06:03 21:30 07:29 Sodium 137 Potassium 3.9 Chloride 101 Carbon Dioxide 27 Anion Gap 9 BUN 23 Creatinine 1.13 Est GFR ( Amer) 75.9 Est GFR (Non-Af Amer) 62.8 BUN/Creatinine Ratio 20.4 H Glucose 146 H POC Glucose (mg/dL) 168 H Calcium 9.6 Magnesium 2.0 Urine Color Yellow Urine Appearance Cloudy Urine pH 7.0 Ur Specific [place] 1.012 Urine Protein Negative Urine Ketones Negative Urine Blood Negative Urine Nitrate Positive A Urine Bilirubin Negative Urine Urobilinogen Negative Ur Leukocyte Esterase 3+ A Urine WBC (Auto) 3+(>20/hpf) A Urine RBC (Auto) Absent Urine Bacteria 1+ A Urine Glucose Negative 12/02/18 12/02/18 11:54 16:15 Sodium Potassium Chloride Carbon Dioxide Anion Gap BUN Creatinine Est GFR ( Amer) Est GFR (Non-Af Amer) BUN/Creatinine Ratio Glucose POC Glucose (mg/dL) 225 H 178 H Calcium Magnesium Urine Color Urine Appearance Urine pH Ur Specific [place] Urine Protein Urine Ketones Urine Blood Urine Nitrate Urine Bilirubin Urine Urobilinogen Ur Leukocyte Esterase Urine WBC (Auto) Urine RBC (Auto) Urine Bacteria Urine Glucose LLE - sutures intact. erythema, likely hematoma at anterior knee. minimal effusion. 5-90 degrees of flexion. distally full sens lt and 2+ dp pulse. +df /pf Assessment: 78 yo M s/p LTKA one week ago, readmitted with UTI and tachycardia. Question of cellulitis vs hematoma at left thigh/knee. Plan: Please continue keflex PT with wbat and aggessive ROM. Ortho to follow daily. Plan per hospitalist d/c to PMRU tomorrow.
[2018-12-02] MEDS: Senna TAB 8.6 mg* TAB PO SCH (20:43)
[2018-12-03] MEDS: NS 0.9% 1000 ML** 1,000 ML IV SCH (04:03)
[2018-12-03 06:20] LABS: ABS Eosinophils 0.1 10^3/ul (0-0.6); ABS Lymphocytes 1.3 10^3/ul (1.0-4.8); ABS Monocytes 1.1 10^3/ul (0-0.8); ABS Neutrophils 4.9 10^3/ul (1.5-7.7); Eosinophil % 1.7 %; Hematocrit 33 % (42-52); Hemoglobin 10.9 g/dL (14.0-18.0); Lymphocyte % 16.9 %; Mean Corpuscular HGB Conc 33 g/dL (31-36); Mean Corpuscular Hemoglobin 30 pg (27-31); Mean Corpuscular Volume 90 fL (80-94); Mean Platelet Volume 7.3 fL (7.4-10.4); Platelet Count 401 10^3/uL (150-450); Red Blood Count 3.62 10^6 /uL (4.18-5.48); Red Cell Distribution Width 14 % (10-15); White Blood Count 7.4 10^3/uL (3.5-10.8)
[2018-12-03] MEDS: Insulin LISPRO* 1 UNITS UNIT SUBCUT SCH ×2 (08:39→12:28)
[2018-12-03] MEDS: CMCS: Pravastatin (NF) 20 MG TAB PO SCH (08:40)
[2018-12-03] MEDS: Hydrochlorothiazide TAB* 25 MG PO SCH (08:40)
[2018-12-03] MEDS: glipiZIDE TAB.XL* 5 MG PO SCH (08:40)
[2018-12-03] MEDS: Gabapentin CAP(*) 300 MG PO SCH (08:40)
[2018-12-03] MEDS: Acetaminophen TAB* 325 MG PO SCH ×2 (08:41→14:03)
[2018-12-03] MEDS: Valsartan TAB* 160 MG PO SCH (08:41)
[2018-12-03] MEDS: Pantoprazole TAB * 40 MG TAB PO SCH (08:41)
[2018-12-03] MEDS: Apixaban* 2.5 MG TAB PO SCH (08:41)
[2018-12-03] MEDS: Docusate CAP* 100 MG PO SCH (08:41)
[2018-12-03] MEDS ORDERED: Magnesium Sulfate 2 GM IV* 2 GM/50 ML BAG IVPB ONE (08:42)
[2018-12-03] MEDS: cefTRIAXone(*) 1 GM in NS 0.9% 50 ML* 50 ML IVPB SCH (08:42)
[2018-12-03] MEDS: oxyCODONE TAB* 5 MG TAB PO PRN (10:15)
[2018-12-03 12:21] VITALS: BP 154/69
--- NOTE | 2018-12-03 13:58 | DS ---
CC: Dr. Keyes; Dr. Ophelia Ochoa * DISCHARGE SUMMARY: DATE OF ADMISSION: 11/30/18 DATE OF DISCHARGE: 12/03/18 PRIMARY CARE PROVIDER: Dr. Keyes. OTHER PROVIDER: Dr. Ophelia Ochoa. ATTENDING PHYSICIAN: Ryan Osuna MD * (dictated by ZEHRA Jarvis). PRIMARY DIAGNOSES: 1. Urinary tract infection. 2. 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 3. Acute kidney injury. SECONDARY DIAGNOSES: 1. Diabetes mellitus type 2. 2. Hypertension. 3. Bladder cancer. 4. Gastroesophageal reflux disease. 5. History of nephrolithiasis. 6. Osteoarthritis. STUDIES WHILE IN THE HOSPITAL: 1. Venous Doppler bilateral lower extremities, impression: No evidence of left or right lower extremity DVT, assessment of the distal left femoral vein was somewhat limited as the patient could not tolerate compression secondary to recent knee replacement. 2. Nuclear medicine V/Q scan, impression: No evidence for pulmonary embolism. CONSULTATIONS WHILE IN THE HOSPITAL: Orthopedics. Left knee, status post total knee replacement on 11/26/[address] Ophelia Ochoa most likely is hematoma, though septic knee is not expected as passive range of motion is completely nonpainful. The patient can be weightbearing as tolerated. Please provide with pain medication in ER. V/Q scan being obtained to rule out PE as the patient is tachycardic and high risk due to recent orthopedic surgery despite the fact that he has been on appropriate DVT prophylaxis with Eliquis. Discussed case with Dr. Ochoa. She agrees with assessment and plan. The patient should follow up with Orthopedic Clinic later this week, sooner with any concerns. If the patient develops fever, chills, or knee pain becomes intolerable, unable to walk, if there is any discharge, please return back to the emergency room right away. DISCHARGE MEDICATIONS: Home medications: 1. Fenofibrate 160 mg p.o. daily. 2. Gabapentin 300 mg p.o. daily. 3. Glipizide 5 mg p.o. daily. 4. Meloxicam 15 mg p.o. daily. 5. Pantoprazole 40 mg p.o. daily. 6. Pravastatin 10 mg p.o. daily. 7. Sildenafil 50 to 100 mg p.o. daily p.r.n. erectile dysfunction. 8. Valsartan/HCTZ 320/25 one tab p.o. daily. 9. Apixaban 2.5 mg p.o. b.i.d. New home medications: 1. Acetaminophen 975 mg p.o. t.i.d. 2. Cefdinir 300 mg p.o. b.i.d. x5 days. 3. Oxycodone 5 to 10 mg p.o. q.4 hours p.r.n. pain, MDD 6. HISTORY OF PRESENT ILLNESS/HOSPITAL COURSE: Mr. Boateng is a 78-year-old male with a past medical history of diabetes, hypertension, bladder cancer, he is status post left total knee arthroplasty on 11/26/18 and was discharged on 11/27. For full and complete details, please see the history and physical dictated by Myriam Nelson NP on 11/30/18, but in short, the patient presents with symptoms of wheezing shortly after an episode of choking on water. He denies shortness of breath, sputum production, fever or chills. He presented to the ER where he was found to be tachycardic. He was also noted to have an acute kidney injury. EKG was obtained and showed sinus tachycardia without ST changes or arrhythmia. The patient was given 2 L IV fluid in the ER. Due to recent orthopedic surgery, a Doppler of bilateral lower extremities was performed and revealed no DVT. Nuclear medicine V/Q scan was obtained and revealed no evidence of PE. A urinalysis was performed and revealed 3+ LE, positive nitrites, 1+ bacteria. Due to high suspicion for UTI, the patient was placed on ceftriaxone. Urine culture resulted revealing E. coli. Blood cultures were obtained and show no growth to date. The patient is status post left total knee replacement on 11/26/18. He has expressed the desire to go to subacute rehab for further physical therapy. He has been accepted at [facility] and will be discharged there today. The patient continues to have left knee pain. Orthopedics have seen the patient while he was in hospital. They plan for continuation of antibiotic treatment for coverage of UTI and skin and soft tissue infection, although there is low suspicion for infection. The knee is erythematous, but this is likely a hematoma. Ortho recommends continued antibiotics, PT with weightbearing as tolerated and aggressive range of motion, and discharged to subacute rehab. The patient is agreeable to this. He continues to have some left knee pain, although he feels that this is improved. He is walking the halls with a walker with less difficulty each day. He otherwise has no complaints. REVIEW OF SYSTEMS: A 14-point review of systems has been performed and all the pertinent positives and negatives are in the HPI. All other systems are negative. PHYSICAL EXAMINATION: General: Mr. Boateng is a well-developed, well-nourished, older white male who is sitting up in bed. He appears to be in no acute distress. He appears comfortable. Vital Signs: Temperature 97.9 oral, heart rate 101, respiratory rate 20, oxygen saturation 96% on room air, blood pressure 154/69. HEENT: PERRL, EOMI. Nonicteric sclerae. Hearing is grossly intact. Oral mucous membranes are moist. There are no lesions. The pharynx is clear. The tongue is at midline. Palate elevates symmetrically. Cardiovascular: Regular rate and rhythm with S1, S2 present without murmurs, rubs, clicks or gallops. There is no JVD. There is 1+ pretibial pitting edema to the left lower extremity, otherwise no peripheral edema. Pulmonary: Symmetrical chest expansion without use of accessory muscles. Lungs: Clear to auscultation bilaterally without rhonchi, wheezes, or rubs. Abdomen: Flat. Bowel sounds in all quadrants. The abdomen is soft. There is no tenderness to palpation. Musculoskeletal: Left knee with range of motion intact to 45 degrees. Left knee is erythematous, nonfluctuant edema present. There is mild erythema that radiates up the medial thigh. Again noted is 1+ pretibial edema to the left leg. Bilateral upper extremities and right lower extremity with full range of motion. Neuro: The patient is awake. He is alert and oriented x3 with cranial nerves grossly intact. He is able to move all of his extremities. Motor strength is 5/5 bilaterally in upper and lower extremities. Equal broadband engineer strength. DISCHARGE PLAN: Mr. Boateng will be discharged to [facility]. CONDITION: Good. DIET: 1. Heart healthy. 2. ADA/diabetic. ACTIVITY: Weightbearing as tolerated. Continue working with PT/OT. MEDICATIONS : 1. Continue pain management as above. 2. Cefdinir 300 mg p.o. b.i.d. x5 days. EDUCATION: 1. Follow up with primary care provider in 4 to 7 days of discharge from subacute rehab. 2. Follow up with Dr. Ochoa as directed. 3. Return to the ER or nearest hospital if you experience any worsening of symptoms, chest pain or discomfort, dizziness, lightheadedness, loss of consciousness, increase in left knee pain, worsening erythema, drainage, or discharge from the surgical site, high fevers, chills, night sweats, or any other worrisome signs or symptoms. This is a summarized report of a complex medical history and hospital stay. For further details, please see the entire medical record. TIME SPENT: Approximately 40 minutes was spent on this discharge, greater than half that time was spent [id number] with the patient discussing discharge plans and instructions. ZEHRA WILKERSON [id number]/[facility] #: [id number] JOSELIT[place]
== END 2018-12-03 15:48 ==
LOC: ED 12:51 → MEDTELE 20:27
PROVIDERS: ADMIT Internal Medicine; ATTEND Internal Medicine
DX: N39.0 Urinary tract infection, site not specified (principal); Z96.652 Presence of left artificial knee joint; N17.9 Acute kidney failure, unspecified; E11.9 Type 2 diabetes mellitus without complications; I10 Essential (primary) hypertension; R00.0 Tachycardia, unspecified; C67.9 Malignant neoplasm of bladder, unspecified; K21.9 Gastro-esophageal reflux disease without esophagitis; Z87.442 Personal history of urinary calculi; M19.90 Unspecified osteoarthritis, unspecified site; Z79.899 Other long term (current) drug therapy; R06.02 Shortness of breath; Z87.891 Personal history of nicotine dependence
CPT/HCPCS: 36415; 71045; 78582; 80048; 80053; 81003; 81015; 83605; 83735; 84439; 84443; 85025; 85379; 85652; 86140; 87040; 87077; 87086; 87186; 93005; 93970; 96361; 96365; 96366; 96367; 99285; A9270-GY; A9540; A9558; G0378; G8978-GP-CJ; G8978-GP-CK; G8979-GP-CI; J0696; J3475